=== PATIENT | male | born 1950 | race Caucasian/White ===

== ENCOUNTER 2018-05-27 21:49 | Inpatient (IN) | payer MEDICARE ==
[~2018-05-27] VITALS: Ht 182.9 cm; Wt 91.1 kg
[~2018-05-27 21:49] MED LIST: ABAC300 PO; ALBU90OI6 INH; ASPI325 PO; Atenolol-Chlor1 EAC1 PO; BUSP15; EPIN.3I IM; FLUSAL1005 INH; ISOMON30 PO; LEVFLO500 PO; LOVA40; LOVESTATIN; OMEP20ER PO; PRAM.5 PO; PRAMIPEXOLE D0.75 MG PO; PROCODE120 PO; Prednisone20 MG PO; TIOT18 INH; ZESTORETIC 20-121 EA; Zithromax250 MG PO
[2018-05-27 22:16] LABS: BASOPHILS PERCENT AUTO 1 % (0-2); EOSINOPHILS ABSOLUTE AUTO 0.76 K/mm3 (0.00-0.68); EOSINOPHILS PERCENT AUTO 9 % (0-6); Hematocrit 41.8 % (37.0-53.0); Hemoglobin 13.6 g/dL (13.5-17.5); IMMATURE GRAN ABSOLUTE AUTO 0.04 K/mm3 (0.00-0.10); IMMATURE GRAN PERCENT AUTO 0 % (0-1); LYMPHOCYTES ABSOLUTE AUTO 1.89 K/mm3 (0.84-5.20); LYMPHOCYTES PERCENT AUTO 21 % (21-46); MONOCYTES PERCENT AUTO 8 % (4-13); Mean Corpuscular HGB Conc 32.5 g/dL (31.5-36.5); Mean Corpuscular Volume 92 fL (80-100); Mean Platelet Volume 10.2 fL (9.1-12.4); NEUTROPHILS PERCENT AUTO 61 % (41-73); Platelet Count 212 K/mm3 (150-400); RDW Coefficient Variation 13.6 % (11.7-14.2); RDW Standard Deviation 46.1 fL (35.1-46.3); Red Blood Cell Count 4.54 M/mm3 (4.30-5.90); White Blood Cell Count 8.99 K/mm3 (4.00-11.30)
[2018-05-27 22:31] LABS: Alanine Aminotransfer (ALT/SGP 39 U/L (12-78); Albumin, Blood 3.5 g/dL (3.4-5.0); Albumin/Globulin Ratio 0.9 (0.8-1.8); Alk Phos 88 U/L (50-136); Anion Gap 9 mmol/L (6-16); Aspartate Aminotrans (AST/SGOT 26 U/L (12-37); Bilirubin, Total 0.2 mg/dL (0.1-1.0); Blood Urea Nitrogen 14 mg/dL (8-24); Bun/Creatinine Ratio 15.1 (12.0-20.0); CO2, Blood 27 mmol/L (21-32); Calcium, Blood 8.7 mg/dL (8.5-10.1); Chloride, Blood 104 mmol/L (98-108); Creatinine, Blood 0.93 mg/dL (0.60-1.20); Globulin, Blood 3.9 g/dL (2.2-4.0); Glomerular Filtration Rate >60 (60-); Glucose, Blood 116 mg/dL (70-99); Potassium, Blood 3.6 mmol/L (3.5-5.5); Sodium, Blood 140 mmol/L (136-145); Total Protein, Blood 7.4 g/dL (6.4-8.2); Troponin I <0.015 ng/mL (0.000-0.040)
[2018-05-28 07:04] LABS: Influenza A Negative (NEGATIVE); Influenza B Negative (NEGATIVE)
[2018-05-29] MEDS ORDERED: Zithromax250 MG PO (12:30)
[2018-05-29] MEDS ORDERED: DULERA 200 MCG/13 GM INH (12:31)
[2018-05-29] MEDS ORDERED: PRED20 PO (12:35)
== END 2018-05-29 13:20 | disposition home or self-care (01) | DRG 192 ==
LOC: ER 21:49 → SURS 23:18
PROVIDERS: Emergency Medicine; ADMIT Hospitalist
DX: J43.9 Emphysema, unspecified (principal); I25.2 Old myocardial infarction; I10 Essential (primary) hypertension; E78.5 Hyperlipidemia, unspecified; Z87.891 Personal history of nicotine dependence; H91.90 Unspecified hearing loss, unspecified ear; Z79.82 Long term (current) use of aspirin; I25.10 Atherosclerotic heart disease of native coronary artery without angina pectoris; Z86.73 Personal history of transient ischemic attack (TIA), and cerebral infarction without residual deficits; E66.9 Obesity, unspecified; Z68.32 Body mass index [BMI] 32.0-32.9, adult; K21.9 Gastro-esophageal reflux disease without esophagitis; J98.01 Acute bronchospasm
CPT/HCPCS: 71045; 80053; 83880; 84484; 85025; 87804; 93005; 93010; 94640; 94760; 96365; 96366; 99285-25; J1650; J1956; J2930

== ENCOUNTER → 2020-09-11 | Outpatient (CLI) | payer OTHER | END | disposition home or self-care (01) | LOC: LAB SHORT 12:16 → LAB 12:16 | DX: R60.9 Edema, unspecified (principal) | CPT/HCPCS: 80053; 83880; 85025 ==

== ENCOUNTER → 2020-12-24 | Outpatient (CLI) | payer OTHER ==
[~2020-12-24] MED LIST changes: +DULERA 200 MCG/13 GM INH; +PRED20 PO
[2020-12-24 09:52] LABS: BASOPHILS ABSOLUTE AUTO 0.02 K/mm3 (0.00-0.23); BASOPHILS PERCENT AUTO 0 % (0-2); EOSINOPHILS PERCENT AUTO 3 % (0-6); Hematocrit 40.8 % (37.0-53.0); Hemoglobin 12.6 g/dL (13.5-17.5); IMMATURE GRAN ABSOLUTE AUTO 0.02 K/mm3 (0.00-0.10); IMMATURE GRAN PERCENT AUTO 0 % (0-1); LYMPHOCYTES PERCENT AUTO 31 % (21-46); MONOCYTES ABSOLUTE AUTO 0.46 K/mm3 (0.16-1.47); MONOCYTES PERCENT AUTO 8 % (4-13); Mean Corpuscular HGB 28.1 pg (26.0-34.0); Mean Corpuscular HGB Conc 30.9 g/dL (31.5-36.5); Mean Corpuscular Volume 91 fL (80-100); Mean Platelet Volume 10.5 fL (9.1-12.4); NEUTROPHILS ABSOLUTE AUTO 3.38 K/mm3 (1.96-9.15); NEUTROPHILS PERCENT AUTO 58 % (41-73); Platelet Count 188 K/mm3 (150-400); RDW Coefficient Variation 14.9 % (11.7-14.2); RDW Standard Deviation 49.9 fL (35.1-46.3); Red Blood Cell Count 4.48 M/mm3 (4.30-5.90); White Blood Cell Count 5.88 K/mm3 (4.00-11.30)
[2020-12-24 10:48] LABS: Alanine Aminotransfer (ALT/SGP 46 U/L (12-78); Albumin, Blood 3.5 g/dL (3.4-5.0); Albumin/Globulin Ratio 0.8 (0.8-1.8); Alk Phos 77 U/L (50-136); Anion Gap 0 mmol/L (6-16); Aspartate Aminotrans (AST/SGOT 39 U/L (12-37); Bilirubin, Total 0.3 mg/dL (0.1-1.0); Blood Urea Nitrogen 21 mg/dL (8-24); Bun/Creatinine Ratio 21.3 (12.0-20.0); CO2, Blood 37 mmol/L (21-32); Calcium, Blood 8.9 mg/dL (8.5-10.1); Chloride, Blood 101 mmol/L (98-108); Creatinine, Blood 0.99 mg/dL (0.60-1.20); Globulin, Blood 4.2 g/dL (2.2-4.0); Glomerular Filtration Rate >60 (60-); Glucose, Blood 126 mg/dL (70-99); Potassium, Blood 4.2 mmol/L (3.5-5.5); Sodium, Blood 138 mmol/L (136-145); Total Protein, Blood 7.7 g/dL (6.4-8.2); Troponin I <0.015 ng/mL (0.000-0.040)
== END | disposition home or self-care (01) ==
LOC: LAB SHORT 09:45
PROVIDERS: Chiropractor
DX: R06.00 Dyspnea, unspecified (principal); R53.83 Other fatigue
CPT/HCPCS: 80053; 83880; 84443; 84484; 85025; 85379

== ENCOUNTER → 2021-04-08 | Outpatient (CLI) | payer OTHER ==
[2021-04-08 13:46] LABS: Alanine Aminotransfer (ALT/SGP 29 U/L (12-78); Albumin, Blood 3.6 g/dL (3.4-5.0); Albumin/Globulin Ratio 0.8 (0.8-1.8); Alk Phos 84 U/L (50-136); Anion Gap 6 mmol/L (6-16); Aspartate Aminotrans (AST/SGOT 16 U/L (12-37); Bilirubin, Total 0.4 mg/dL (0.1-1.0); Blood Urea Nitrogen 26 mg/dL (8-24); CO2, Blood 31 mmol/L (21-32); Calcium, Blood 9.4 mg/dL (8.5-10.1); Chloride, Blood 103 mmol/L (98-108); Creatinine, Blood 1.13 mg/dL (0.60-1.20); Globulin, Blood 4.4 g/dL (2.2-4.0); Glomerular Filtration Rate >60 (60-); Glucose, Blood 124 mg/dL (70-99); Potassium, Blood 3.5 mmol/L (3.5-5.5); Sodium, Blood 140 mmol/L (136-145)
== END | disposition home or self-care (01) ==
LOC: LAB 11:10 → LAB SHORT 11:10
PROVIDERS: Nurse Practitioner Family
DX: E11.9 Type 2 diabetes mellitus without complications (principal)
CPT/HCPCS: 36415; 80053; 83036

== ENCOUNTER 2021-08-01 15:31 | Inpatient (IN) | payer OTHER ==
[~2021-08-01] VITALS: Ht 170.2 cm; Wt 106.8 kg
[2021-08-01 16:15] LABS: BASOPHILS ABSOLUTE AUTO 0.05 K/mm3 (0.00-0.23); BASOPHILS PERCENT AUTO 1 % (0-2); EOSINOPHILS ABSOLUTE AUTO 0.41 K/mm3 (0.00-0.68); EOSINOPHILS PERCENT AUTO 4 % (0-6); Hematocrit 39.1 % (37.0-53.0); IMMATURE GRAN ABSOLUTE AUTO 0.05 K/mm3 (0.00-0.10); IMMATURE GRAN PERCENT AUTO 1 % (0-1); LYMPHOCYTES ABSOLUTE AUTO 1.69 K/mm3 (0.84-5.20); LYMPHOCYTES PERCENT AUTO 18 % (21-46); MONOCYTES ABSOLUTE AUTO 0.77 K/mm3 (0.16-1.47); MONOCYTES PERCENT AUTO 8 % (4-13); Mean Corpuscular HGB 27.9 pg (26.0-34.0); Mean Corpuscular HGB Conc 30.7 g/dL (31.5-36.5); Mean Corpuscular Volume 91 fL (80-100); Mean Platelet Volume 10.2 fL (9.1-12.4); NEUTROPHILS ABSOLUTE AUTO 6.51 K/mm3 (1.96-9.15); NEUTROPHILS PERCENT AUTO 69 % (41-73); Platelet Count 233 K/mm3 (150-400); RDW Coefficient Variation 14.7 % (11.7-14.2); RDW Standard Deviation 49.4 fL (35.1-46.3); White Blood Cell Count 9.48 K/mm3 (4.00-11.30)
[2021-08-01 16:32] LABS: Base Excess Venous 17.2 mmol/L; Bicarbonate Venous 37.6 mmol/L (24.0-30.0); PCO2 Venous 82.4 mmHg (38-42); PO2 Venous 76.3 mmHg (38-42); pH Blood Venous 7.33 (7.34-7.37)
[2021-08-01 16:35] LABS: Alanine Aminotransfer (ALT/SGP 47 U/L (12-78); Albumin, Blood 3.4 g/dL (3.4-5.0); Albumin/Globulin Ratio 0.8 (0.8-1.8); Alk Phos 81 U/L (50-136); Anion Gap 3 mmol/L (6-16); Aspartate Aminotrans (AST/SGOT 45 U/L (12-37); Bilirubin, Total 0.4 mg/dL (0.1-1.0); Blood Urea Nitrogen 17 mg/dL (8-24); Bun/Creatinine Ratio 17.1 (12.0-20.0); CO2, Blood 40 mmol/L (21-32); Calcium, Blood 9.3 mg/dL (8.5-10.1); Chloride, Blood 95 mmol/L (98-108); Creatinine, Blood 0.99 mg/dL (0.60-1.20); Globulin, Blood 4.3 g/dL (2.2-4.0); Glomerular Filtration Rate >60 (60-); Glucose, Blood 119 mg/dL (70-99); Potassium, Blood 3.7 mmol/L (3.5-5.5); Sodium, Blood 138 mmol/L (136-145); Total Protein, Blood 7.7 g/dL (6.4-8.2)
[2021-08-01 16:43] LABS: Influenza A, PCR NEGATIVE (NEGATIVE); Influenza B, PCR NEGATIVE (NEGATIVE); Resp Syncytial Virus, PCR NEGATIVE (NEGATIVE); SARS-Cov-2 (COVID-19) PCR, MMC NEGATIVE (NEGATIVE)
--- NOTE | 2021-08-02 02:05 | NUR ---
HOSPITALIST NOTIFIED HOSPITALIST NOTIFIED OF PT'S INCREASED CONFUSION, TEMP 99.6 & EPISODES OF HYPOTENSION WHILE SLEEPING. 500 ML NS BOLUS X 1 & PO TYLENOL HAS BEEN ORDERED. PT IS HARD TO WAKE BUT ONCE HE DOES HE IS ABLE TO ANSWER QUESTIONS AND BP IS WNL. PT HAS BEEN WEARING THE CPAP FOR APPROX 1 HOUR & HAS REQUESTED TO BE PLACED BACK ON NC. RESP UNLABORED. CALL LIGHT IN REACH. PT STATUS HAS ALSO BEEN DISCUSSED WITH PRESIDENT & CEO [employer].
[2021-08-02 03:49] LABS: BASOPHILS ABSOLUTE AUTO 0.01 K/mm3 (0.00-0.23); BASOPHILS PERCENT AUTO 0 % (0-2); EOSINOPHILS PERCENT AUTO 0 % (0-6); Hematocrit 36.1 % (37.0-53.0); Hemoglobin 10.8 g/dL (13.5-17.5); IMMATURE GRAN ABSOLUTE AUTO 0.03 K/mm3 (0.00-0.10); IMMATURE GRAN PERCENT AUTO 1 % (0-1); LYMPHOCYTES ABSOLUTE AUTO 0.35 K/mm3 (0.84-5.20); LYMPHOCYTES PERCENT AUTO 6 % (21-46); MONOCYTES ABSOLUTE AUTO 0.07 K/mm3 (0.16-1.47); MONOCYTES PERCENT AUTO 1 % (4-13); Mean Corpuscular HGB 27.7 pg (26.0-34.0); Mean Corpuscular HGB Conc 29.9 g/dL (31.5-36.5); Mean Corpuscular Volume 93 fL (80-100); Mean Platelet Volume 10.1 fL (9.1-12.4); NEUTROPHILS ABSOLUTE AUTO 5.23 K/mm3 (1.96-9.15); NEUTROPHILS PERCENT AUTO 92 % (41-73); Platelet Count 216 K/mm3 (150-400); RDW Coefficient Variation 14.7 % (11.7-14.2); RDW Standard Deviation 49.5 fL (35.1-46.3); White Blood Cell Count 5.69 K/mm3 (4.00-11.30)
[2021-08-02 04:14] LABS: Bun/Creatinine Ratio 19.4 (12.0-20.0); Calcium, Blood 8.7 mg/dL (8.5-10.1); Creatinine, Blood 1.39 mg/dL (0.60-1.20); Potassium, Blood 4.2 mmol/L (3.5-5.5)
--- NOTE | 2021-08-02 05:11 | NUR ---
SUMMARY A&O X3, MOMENTS OF CONFUSION NOTED, BED ALARM IS ON FOR SAFETY. PT WAS GIVEN A 500 ML BOLUS, BP HAS BEEN WNL SINCE BOLUS BUT PT HAS ALSO BEEN AWAKE. O2 VIA HF NC @ 7 L, SPO2 88-95%, PT WAS ABLE TO TOLERATE CPAP FOR A FEW HRS. PT DENIES CP/SOB. PT UNABLE TO VOID THROUGH THE NIGHT, BLADDER SCAN SHOWED APPROX 750 ML'S, PT STRAIGHT CATHED, >800 ML'S F URINE NOTED. NO OTHER ACUTE CHANGES. CALL LIGHT IN REACH.
--- NOTE | 2021-08-02 17:19 | NUR ---
SHIFT SUMMARY PT REMAINS ALERT AND ORIENTED. BP STABLE. HR NSR. PT TITRATED UP TO 10L NC TO KEEP SATURATION ABOVE 90%. PT ON BIPAP ON AND OFF THROUGHOUT SHIFT. PT ABLE TO STAND AND TRANSFER TO BSC NEEDED TO VOID. PT DENIES ANY PAIN. WILL CONTINUE TO MONITOR AND REPORT TO ONCOMING RN
--- NOTE | 2021-08-02 23:01 | NUR ---
Assumed care of pt at 1900. A/Ox4, sitting up in bed and watching television. Reports no pain/CP/pressure. Maintaining low 90's on 10L NC, LS dim t/o. NSR on tele, 2+ radial pulses, and 1+ pedals. +2 pitting edema BLE. Distended abdomen, pt reports normal. Will wear bipap periodically, but not for an extended period of time. Will update as changes occur.
--- NOTE | 2021-08-03 15:29 | NUR ---
UPDATE PT REMAINS ALERT AND ORIENTED. O2 SATS TITRATED DOWN TO 7L NC WITH SATS >90%. STATUS CHANGED TO MEDICAL. ROOM ASSIGNMENT PROVIDED AND REPORT GIVEN TO MEDICAL FLOOR RN. PT TO BE TAKEN UP BY WC.
--- NOTE | 2021-08-04 03:32 | NUR ---
SHIFT SUMMARY PATIENT HAD NO ACUTE CHANGES OBSERVED. AXOX 3 AND SBA W/FWW TO BSC. ON 6L O2 NC AND 4L BASELINE. RT IN FOR BREATHING TX. PIV REMAINS INTACT. IV ABX INFUSED. CBG 327. SOLU-MEDROL GIVEN PER EMAR. DENIES PAIN AND N/V. REPORTS LIKES TO STAY UP AT NIGHT AND WATCH MOVIES. COOPERATIVE WITH CARE. CALL LIGHT IN REACH. BED IN LOWEST POSITION. WILL CONTINUE TO MONITOR UNTIL DAY SHIFT NURSE ASSUMES CARE.
--- NOTE | 2021-08-04 14:29 | NUR ---
Received referral from [facility] (Belkis Thompson) on 08/04/2021. Patient was admitted to [facility] on 08/01/2021 due to acute on chronic respiratory failure with hypoxia. Patient is to discharge 08/05/2021 with orders for home health and elected [facility]. Met with patient to further discuss the above. Patient declines home health services at this time stating "I don't want it, I'm not homebound". Informed patient that if they changed their mind they could always request services through their primary care provider. Provided patient with my business card and home health pamphlet. Communicated the above to [facility] (Belksi Thompson) and bedside RN (Tristian Franco). No further interventions required. Maryanne Bruce Referral Liaison
--- NOTE | 2021-08-04 15:09 | NUR ---
This [facility] CM visited the patient in his room this morning. Patient's , Sommer Booth was present as well. They report that they live in a single story home together with 4-5 steps to the entrance, which the patient does not needed assistance with. Patient is mostly independent in his home but, provides help with ADLs when needed. Patient has a wheelchair, 4WW, cane, O2 and supplies. He states he usually is on 4LPM O2 at home via nasal cannula. helps with medication management and will be able to provide transportation at discharge.
--- NOTE | 2021-08-04 18:28 | NUR ---
PT IS A/OX3, PLEASANT AND COOPERATIVE, UP WITH MINIMAL ASSIST. THE PT WAS TIRATED TO 4L/MIN FROM 6L/MIN TODAY WHICH IS HIS HOME BASELINE, AND MAINTAINED O2 SATS GREATE THAN 90% T/O THE DAY. THE PT DENIED ANY PAIN. PT WAS TO BE DC'D TODAY BUT DUE TO HIGH BLOOD SUGARS DC WAS HELD UNTIL BLOOD SUGER IS STABLE. CALL LIGHT IN REACH, EXPECT DC TOMMOROW
[2021-08-05 05:47] LABS: BASOPHILS PERCENT AUTO 0 % (0-2); EOSINOPHILS PERCENT AUTO 0 % (0-6); Hemoglobin 12.1 g/dL (13.5-17.5); IMMATURE GRAN ABSOLUTE AUTO 0.03 K/mm3 (0.00-0.10); IMMATURE GRAN PERCENT AUTO 0 % (0-1); LYMPHOCYTES ABSOLUTE AUTO 1.96 K/mm3 (0.84-5.20); LYMPHOCYTES PERCENT AUTO 21 % (21-46); MONOCYTES ABSOLUTE AUTO 0.64 K/mm3 (0.16-1.47); MONOCYTES PERCENT AUTO 7 % (4-13); Mean Corpuscular HGB 27.5 pg (26.0-34.0); Mean Corpuscular Volume 89 fL (80-100); Mean Platelet Volume 10.9 fL (9.1-12.4); NEUTROPHILS ABSOLUTE AUTO 6.68 K/mm3 (1.96-9.15); NEUTROPHILS PERCENT AUTO 72 % (41-73); Platelet Count 271 K/mm3 (150-400); RDW Standard Deviation 49.5 fL (35.1-46.3); White Blood Cell Count 9.31 K/mm3 (4.00-11.30)
[2021-08-05 06:03] LABS: Anion Gap 6 mmol/L (6-16); Blood Urea Nitrogen 32 mg/dL (8-24); Bun/Creatinine Ratio 31.7 (12.0-20.0); CO2, Blood 35 mmol/L (21-32); Calcium, Blood 9.3 mg/dL (8.5-10.1); Chloride, Blood 99 mmol/L (98-108); Creatinine, Blood 1.01 mg/dL (0.60-1.20); Glomerular Filtration Rate >60 (60-); Glucose, Blood 176 mg/dL (70-99); Potassium, Blood 3.6 mmol/L (3.5-5.5); Sodium, Blood 140 mmol/L (136-145)
--- NOTE | 2021-08-05 06:48 | NUR ---
SHIFT SUMMARY Pt doing well, no c/o pain or nausea, lungs diminished, angelia 4L O2 via n/c which is his baseline home O2. Blood sugars downtrending and his H/S blood sugar was 251 last evening, med per jul. Pt up independently in room, voiding without difficulty. Anticipate d/c to home today if medically stable.
[2021-08-05] MEDS ORDERED: GABA100 PO (10:17)
[2021-08-05] MEDS ORDERED: FURO20 PO (10:17)
[2021-08-05] MEDS ORDERED: POTA10T PO (10:18)
[2021-08-05] MEDS ORDERED: METF500 PO (10:18)
[2021-08-05] MEDS ORDERED: LISI20 PO (10:18)
[2021-08-05] MEDS ORDERED: GLIP5 PO (10:19)
[2021-08-05] MEDS ORDERED: TRAZ50 PO (10:19)
[2021-08-05] MEDS ORDERED: IPRAT-ALBUT 0.5-3 ML INH (10:20)
[2021-08-05] MEDS ORDERED: CEFD300 PO (10:20)
[2021-08-05] MEDS ORDERED: CARV3.125 PO (10:20)
--- NOTE | 2021-08-05 11:06 | NUR ---
PT DISCHARGED THE PT VERBALIZED UNDERSTANDING OF THE DC INSTRUCTIONS. PT PRESCRIPTIONS FAXED TO REQUESTED PHARMACY. THE PT WAS MAINTAING O2 SAT'S ABOVE 90% ON 4L/MIN O2 HIS HOME BASELINE. THE PT WAS TRANSFERED VIA WHEELCHAIR TO MEET HIS AT THE FRONT ENTRANCE
--- NOTE | 2021-08-05 14:31 | NUR ---
Per chart review with Dr. Holland, patient appropriate to discharge home with spouse, Sommer. This [facility] CM spoke with Sommer this morning to discuss discharge plan. Sommer provided discharge transportation home. [facility] CM scheduled a hospital follow up for the patient during conversation with spouse. Appointment with PCP, Valery Foster scheduled for July at 12:20 PM. Both aware [facility] has recommended outpatient PT. PCP to discuss referral. No needs anticipated post discharge, patient/spouse deny barriers.
== END 2021-08-05 10:53 | disposition home or self-care (01) | DRG 189 ==
LOC: ER 15:31 → PCU 20:38 → MEDS 08-03 16:04 → ENPENDDIS 08-04 12:34 → MEDS 08-05 10:53
PROVIDERS: Emergency Medicine; Internal Medicine; ADMIT Internal Medicine
PROC: 5A09457 Assistance with Respiratory Ventilation, 24-96 Consecutive Hours, Continuous Positive Airway Pressure (ICD-10-PCS; principal; 2021-08-01)
DX: J96.21 Acute and chronic respiratory failure with hypoxia (principal); E87.2 Acidosis; J98.11 Atelectasis; J96.22 Acute and chronic respiratory failure with hypercapnia; Z20.822 Contact with and (suspected) exposure to COVID-19; Z28.21 Immunization not carried out because of patient refusal; I10 Essential (primary) hypertension; E78.5 Hyperlipidemia, unspecified; I25.10 Atherosclerotic heart disease of native coronary artery without angina pectoris; F17.210 Nicotine dependence, cigarettes, uncomplicated; G47.33 Obstructive sleep apnea (adult) (pediatric); K21.9 Gastro-esophageal reflux disease without esophagitis; E11.40 Type 2 diabetes mellitus with diabetic neuropathy, unspecified; G25.81 Restless legs syndrome; J43.9 Emphysema, unspecified; E11.65 Type 2 diabetes mellitus with hyperglycemia; T38.0X5A Adverse effect of glucocorticoids and synthetic analogues, initial encounter; Z86.73 Personal history of transient ischemic attack (TIA), and cerebral infarction without residual deficits; Z95.5 Presence of coronary angioplasty implant and graft; I25.2 Old myocardial infarction; Z99.81 Dependence on supplemental oxygen; Z95.1 Presence of aortocoronary bypass graft; Z88.6 Allergy status to analgesic agent; Z88.8 Allergy status to other drugs, medicaments and biological substances; Z88.5 Allergy status to narcotic agent; Z79.84 Long term (current) use of oral hypoglycemic drugs; Z79.899 Other long term (current) drug therapy
CPT/HCPCS: 0241U; 36415; 51701; 71045; 80048; 80053; 82803; 82947; 83880; 84145; 84484; 85025; 93005; 93010; 94640; 94660; 94762; 97116; 97162; 97165; 97530; 99285-25; A9270; J0696; J1650; J1940; J2930; J7030

== ENCOUNTER 2021-11-21 18:41 | Inpatient (IN) | payer OTHER ==
[~2021-11-21] VITALS: Ht 170.2 cm; Wt 89.9 kg
[~2021-11-21 18:41] MED LIST changes: +CARV3.125 PO; +CEFD300 PO; +FURO20 PO; +GABA100 PO; +GLIP5 PO; +IPRAT-ALBUT 0.5-3 ML INH; +LISI20 PO; +METF500 PO; +POTA10T PO; +TRAZ50 PO
[2021-11-21 19:07] LABS: BASOPHILS ABSOLUTE AUTO 0.04 K/mm3 (0.00-0.23); BASOPHILS PERCENT AUTO 1 % (0-2); EOSINOPHILS ABSOLUTE AUTO 0.19 K/mm3 (0.00-0.68); EOSINOPHILS PERCENT AUTO 3 % (0-6); Hematocrit 39.5 % (37.0-53.0); Hemoglobin 11.4 g/dL (13.5-17.5); IMMATURE GRAN ABSOLUTE AUTO 0.02 K/mm3 (0.00-0.10); IMMATURE GRAN PERCENT AUTO 0 % (0-1); LYMPHOCYTES ABSOLUTE AUTO 1.77 K/mm3 (0.84-5.20); LYMPHOCYTES PERCENT AUTO 23 % (21-46); MONOCYTES ABSOLUTE AUTO 0.44 K/mm3 (0.16-1.47); MONOCYTES PERCENT AUTO 6 % (4-13); Mean Corpuscular HGB 27.1 pg (26.0-34.0); Mean Corpuscular HGB Conc 28.9 g/dL (31.5-36.5); Mean Corpuscular Volume 94 fL (80-100); NEUTROPHILS ABSOLUTE AUTO 5.17 K/mm3 (1.96-9.15); NEUTROPHILS PERCENT AUTO 68 % (41-73); Platelet Count 157 K/mm3 (150-400); RDW Standard Deviation 51.9 fL (35.1-46.3); Red Blood Cell Count 4.21 M/mm3 (4.30-5.90); White Blood Cell Count 7.63 K/mm3 (4.00-11.30)
[2021-11-21 19:23] LABS: Albumin, Blood 3.5 g/dL (3.4-5.0); Albumin/Globulin Ratio 0.9 (0.8-1.8); Bilirubin, Total 0.3 mg/dL (0.1-1.0); Bun/Creatinine Ratio 26.4 (12.0-20.0); Calcium, Blood 9.3 mg/dL (8.5-10.1); Creatinine, Blood 1.82 mg/dL (0.60-1.20); Globulin, Blood 3.9 g/dL (2.2-4.0); Potassium, Blood 5.5 mmol/L (3.5-5.5); Total Protein, Blood 7.4 g/dL (6.4-8.2)
[2021-11-21 19:24] LABS: Base Excess Venous 13.3 mmol/L; Bicarbonate Venous 34.3 mmol/L (24.0-30.0); pH Blood Venous 7.33 (7.34-7.37)
[2021-11-21 19:25] LABS: Calcium, Ionized (POC) 1.16 mmol/L (1.10-1.46); Chloride (POC) 97 mmol/L (98-108); Creatinine (POC) 1.9 mg/dL (0.8-1.3); Glucose (ISTAT POC) 107 mg/dL (70-99); Hemoglobin (POC) 12.9 g/dL (13.5-17.5); Potassium (POC) 6.2 mmol/L (3.5-5.5); Sodium (POC) 141 mmol/L (135-148); Total CO2 (POC) 41 mmol/L (21-32)
[2021-11-21 20:13] LABS: Magnesium, Blood 2.1 mg/dL (1.6-2.4)
[2021-11-21 22:49] LABS: Source, Urine Clean Catch
[2021-11-21 22:51] LABS: Bilirubin, Urine Neg (Neg); Blood, Urine Neg (Neg); Glucose Qualitative, Urine Neg (Neg); Ketones, Urine Neg (Neg); Leukocyte Esterase, Urine Neg (Neg); Nitrite, Urine Neg (Neg); Protein, Urine Neg (Neg); Specific Gravity, Urine 1.015 (1.003-1.022); Urobilinogen, Urine NORM (Normal)
[2021-11-21 22:55] LABS: Appearance, Urine Clear (Clear); Color, Urine Yellow (P-Yellow)
[2021-11-21 23:28] LABS: Influenza A, PCR NEGATIVE (NEGATIVE); Influenza B, PCR NEGATIVE (NEGATIVE); Resp Syncytial Virus, PCR NEGATIVE (NEGATIVE); SARS-Cov-2 (COVID-19) PCR, MMC NEGATIVE (NEGATIVE)
[2021-11-22 01:16] LABS: PCO2 Arterial 84.4 mmHg (35-45); PO2 Arterial 93.3 mmHg (80-100); pH Blood Arterial 7.25 (7.35-7.45)
--- NOTE | 2021-11-22 01:32 | NUR ---
CALL TO DR. DEL CASTILLO NOTIFIED OF CRITICAL ABG LAB RESULTS. PH 7.25 AND PCO2 84.4. REPEAT ABG IN ONE HOUR. PT SWITCHED FROM A V30 TO A V60.
[2021-11-22 01:48] LABS: Hematocrit 39.7 % (37.0-53.0); Hemoglobin 11.4 g/dL (13.5-17.5); Mean Corpuscular HGB 27.1 pg (26.0-34.0); Mean Corpuscular HGB Conc 28.7 g/dL (31.5-36.5); Mean Corpuscular Volume 95 fL (80-100); Mean Platelet Volume 11.1 fL (9.1-12.4); Platelet Count 177 K/mm3 (150-400); RDW Coefficient Variation 14.9 % (11.7-14.2); RDW Standard Deviation 52.6 fL (35.1-46.3); White Blood Cell Count 7.86 K/mm3 (4.00-11.30)
--- NOTE | 2021-11-22 02:00 | NUR ---
PT ARRIVED FROM THE ER AT APPX 0055 TO ICU ROOM 6. PT WAS ON BIPAP W/ 8L BLEED IN O2 WITH SATS 86-88%. OXYGEN WAS INCREASED TO 15L AND SATS WERE STILL LESS THAN 90%. PT WAS CHANGED TO AVAPS MACHINE. BLOOD GASES WERE ALSO DRAWN AT THAT TIME W/CRITICAL RESULT CALLED TO DR DEL CASTILLO. CURRENT BIPAP SETTINGS ARE 18.8 W/RATE 18 80% FIO2. LABS HAVE BEEN DRAWN AND SENT. PT WAS LETHARGIC UPON ARRIVAL BUT WOULD RESPOND TO VERBAL STIMULI. PT IS VERY HARD OF HEARING. HE IS ORIENTED TO NAME ONLY AND ASKED WHERE HE WAS AND WHAT WAS GOING ON. PT WAS EDUCATED ON HIS PLAN OF CARE. PT WAS ALSO ON LEVOPHED AT 5.5MCGS WHEN HE ARRIVED INFUSING VIA LEFT FEMORAL CVL PLACED IN THE ER. BP MAP ON THIS RATE ARE >65. PT IS IN SR W/RATE 60S-80S. HE IS AFEBRILE. PT IS CURRENTLY IN NO ACUTE DISTRESS AND IS TOLERATING THE CURRENT TREATMENTS PROVIDED.
[2021-11-22 02:25] LABS: Bun/Creatinine Ratio 25.6 (12.0-20.0); Calcium, Blood 10.1 mg/dL (8.5-10.1); Creatinine, Blood 1.8 mg/dL (0.60-1.20); Potassium, Blood 6.4 mmol/L (3.5-5.5)
[2021-11-22 02:28] LABS: PCO2 Arterial > 105 mmHg (35-45); PO2 Arterial 212 mmHg (80-100); pH Blood Arterial 7.13 (7.35-7.45)
--- NOTE | 2021-11-22 02:49 | NUR ---
INTUBATION BY RT WITH DR. DEL CASTILLO AT BEDSIDE 15MG ETOMIDATE AT 0250 100MG OF LILIA AT 0250 NSR 60'S 102/60 (72) SPO2 98% ETT 8.0 25CM AT GUM 0251 + COLOR CHANGE. + BREATH SOUNDS. SPO2 94%
--- NOTE | 2021-11-22 03:25 | NUR ---
I CALLED PT'S AND UPDATED HER ON PT INTUBATION/CHANGE IN CONDITION. SHE VOICED HER APPRECIATION FOR THE UPDATE.
[2021-11-22 04:48] LABS: BASOPHILS ABSOLUTE AUTO 0.02 K/mm3 (0.00-0.23); BASOPHILS PERCENT AUTO 0 % (0-2); EOSINOPHILS ABSOLUTE AUTO 0.02 K/mm3 (0.00-0.68); EOSINOPHILS PERCENT AUTO 0 % (0-6); Hematocrit 38.5 % (37.0-53.0); Hemoglobin 11.2 g/dL (13.5-17.5); IMMATURE GRAN ABSOLUTE AUTO 0.03 K/mm3 (0.00-0.10); IMMATURE GRAN PERCENT AUTO 0 % (0-1); LYMPHOCYTES ABSOLUTE AUTO 0.58 K/mm3 (0.84-5.20); LYMPHOCYTES PERCENT AUTO 8 % (21-46); MONOCYTES ABSOLUTE AUTO 0.07 K/mm3 (0.16-1.47); MONOCYTES PERCENT AUTO 1 % (4-13); Mean Corpuscular HGB 27.1 pg (26.0-34.0); Mean Corpuscular HGB Conc 29.1 g/dL (31.5-36.5); Mean Corpuscular Volume 93 fL (80-100); Mean Platelet Volume 11.4 fL (9.1-12.4); NEUTROPHILS ABSOLUTE AUTO 6.57 K/mm3 (1.96-9.15); NEUTROPHILS PERCENT AUTO 90 % (41-73); Platelet Count 185 K/mm3 (150-400); RDW Coefficient Variation 14.8 % (11.7-14.2); RDW Standard Deviation 51.1 fL (35.1-46.3); Red Blood Cell Count 4.13 M/mm3 (4.30-5.90); White Blood Cell Count 7.29 K/mm3 (4.00-11.30)
--- NOTE | 2021-11-22 05:20 | NUR ---
PT NOTED TO HAVE SOME SHIVERING TYPE MOVEMENTS INTERMITTENTLY. HE HAD DONE THIS PRIOR TO INTUBATION WHILE NOT SEDATED WELL. DR JACOBSEN NOTIFIED. CT OF THE HEAD ALREADY DONE. ORDERS GIVEN. PT IS PERRLA WITH NO SIGNS OF AN ACUTE NEUROLOGICAL EVENT.
[2021-11-22 05:25] LABS: Albumin, Blood 3.3 g/dL (3.4-5.0); Albumin/Globulin Ratio 0.9 (0.8-1.8); Bilirubin, Total 0.4 mg/dL (0.1-1.0); Bun/Creatinine Ratio 25.4 (12.0-20.0); Calcium, Blood 10.2 mg/dL (8.5-10.1); Creatinine, Blood 1.69 mg/dL (0.60-1.20); Globulin, Blood 3.6 g/dL (2.2-4.0); Potassium, Blood 5.4 mmol/L (3.5-5.5); Total Protein, Blood 6.9 g/dL (6.4-8.2)
[2021-11-22 05:34] LABS: PCO2 Arterial 48.4 mmHg (35-45); PO2 Arterial 54.6 mmHg (80-100); pH Blood Arterial 7.46 (7.35-7.45)
[2021-11-22 06:22] LABS: U Amphetamine Screen Not Detected; U Barbituate Screen Not Detected; U Benzodiazapine Screen Not Detected; U Buprenorphine Screen Not Detected; U Cannabinoids Screen Not Detected; U Cocaine Screen Not Detected; U Methadone Screen Not Detected; U Methamphetamine Screen Not Detected; U Opiates Screen Not Detected; U Oxycodone Screen Not Detected; U Phencyclidine Screen Not Detected; U Propoxyphene Screen Not Detected
[2021-11-22 16:47] LABS: Magnesium, Blood 1.7 mg/dL (1.6-2.4)
[2021-11-22 16:48] LABS: Bun/Creatinine Ratio 25.3 (12.0-20.0); Calcium, Blood 9.8 mg/dL (8.5-10.1); Creatinine, Blood 1.5 mg/dL (0.60-1.20); Potassium, Blood 5.1 mmol/L (3.5-5.5)
--- NOTE | 2021-11-22 17:48 | NUR ---
SHIFT SUMMARY PT REMAINS INTUBATED, VENT SETTINGS AC 14/500/5/50% WITH SATS>90%. PROPOFOL @ 40 MCG/KG/MIN. PT EASILY AROUSABLE TO VERBAL STIMULI, FOLLOWS COMMANDS, EASILY AGITATED. PT TREMULOUS, PER PT'S , PT BEGAN GETTING TREMORS 3 DAYS STOCK BLENDER. PT SR WITH PEAKED T WAVE HR 70-80 AT START OF SHIFT. PT BEGAN TO HAVE RHYTHM CHANGES WITH HR IN 50'S. EKG DONE, REPEAT LABS. ORDERS RECEIVED. 1200 ML URINARY OUTPUT FROM VASQUES CATH. PT'S AT BEDSIDE. UPDATED WITH PLAN OF CARE. WILL REPORT TO ONCOMING NURSE.
--- NOTE | 2021-11-22 21:26 | NUR ---
SPOKE TO PT AND UPDATED HER ON PT CONDITON. VOICED APPRECIATION FOR CARE AND INFORMATION PROVIDED.
[2021-11-22 23:09] LABS: Source, Urine Foley catheter
[2021-11-22 23:12] LABS: Bilirubin, Urine Neg (Neg); Blood, Urine 2+ (Neg); Glucose Qualitative, Urine 1+ (Neg); Ketones, Urine Neg (Neg); Leukocyte Esterase, Urine Neg (Neg); Nitrite, Urine Neg (Neg); Protein, Urine 2+ (Neg); Specific Gravity, Urine 1.005 (1.003-1.022); Urobilinogen, Urine NORM (Normal)
[2021-11-22 23:17] LABS: Appearance, Urine Clear (Clear); Color, Urine Yellow (P-Yellow)
[2021-11-22 23:19] LABS: Bacteria Rare /hpf; Mucus Light (0-Heavy); Squamous Epithelial Cells Not Seen /hpf (Few); White Blood Cells, Urine 0-2 /hpf (0-5)
[2021-11-23 05:02] LABS: BASOPHILS ABSOLUTE AUTO 0.02 K/mm3 (0.00-0.23); BASOPHILS PERCENT AUTO 0 % (0-2); EOSINOPHILS ABSOLUTE AUTO 0.08 K/mm3 (0.00-0.68); EOSINOPHILS PERCENT AUTO 1 % (0-6); Hematocrit 32.1 % (37.0-53.0); Hemoglobin 9.8 g/dL (13.5-17.5); IMMATURE GRAN ABSOLUTE AUTO 0.02 K/mm3 (0.00-0.10); IMMATURE GRAN PERCENT AUTO 0 % (0-1); LYMPHOCYTES ABSOLUTE AUTO 2.15 K/mm3 (0.84-5.20); LYMPHOCYTES PERCENT AUTO 29 % (21-46); MONOCYTES ABSOLUTE AUTO 0.42 K/mm3 (0.16-1.47); MONOCYTES PERCENT AUTO 6 % (4-13); Mean Corpuscular HGB Conc 30.5 g/dL (31.5-36.5); Mean Platelet Volume 11.3 fL (9.1-12.4); NEUTROPHILS ABSOLUTE AUTO 4.75 K/mm3 (1.96-9.15); NEUTROPHILS PERCENT AUTO 64 % (41-73); Platelet Count 148 K/mm3 (150-400); RDW Coefficient Variation 15.7 % (11.7-14.2); RDW Standard Deviation 50.7 fL (35.1-46.3); Red Blood Cell Count 3.63 M/mm3 (4.30-5.90); White Blood Cell Count 7.44 K/mm3 (4.00-11.30)
[2021-11-23 05:16] LABS: Mean Corpuscular Volume 88 fL (80-100)
[2021-11-23 05:19] LABS: Bun/Creatinine Ratio 25.3 (12.0-20.0); Creatinine, Blood 1.5 mg/dL (0.60-1.20); Phosphorus, Blood 3.3 mg/dL (2.5-4.9); Potassium, Blood 4.3 mmol/L (3.5-5.5)
--- NOTE | 2021-11-23 06:05 | NUR ---
SHIFT SUMMERY PT CONTINUES ON VENT VIA ETT TUBE RATE 14/TV 500/PEEP 8/FIO2 60%. PROPOFOL AT 55MCGS. PT BECOMES VERY AGITATED W/ANY STIMULATION. VS WNL, PRESSORS REMAIN OFF. TUBE FEEDING IS AT GOAL, MAX RESIDUAL WAS 90ML. PT HAS BEEN AFEBRILE. NO CRITICAL LAB VALUES THIS MORNING. NO ACUTE CHANGES OVERNIGHT.
--- NOTE | 2021-11-23 10:07 | NUR ---
AT BEDSIDE, REPORT FROM RENAE RICCI RN, NO DISTRESS, REPOSITIONED PATIENT
--- NOTE | 2021-11-23 10:49 | NUR ---
DR KHAN ROUNDED, NO HOLIDAY SEDATION, TRIAL TOMORROW FOR EXTUBATION, AT BEDSIDE
--- NOTE | 2021-11-23 15:03 | NUR ---
DR LEMON DECREASED THE FIO2 TO 30% AND PEEP TO 5 AT 1239, 1340 SBT STARTED, PATIENT BECAME APNEA, BACK ON ACVC, NO APNEA, NO DISTRESS
--- NOTE | 2021-11-23 17:37 | NUR ---
unable to makes needs known, intubated, size 8 27 at the teeth, acvc 14/500/5/30%, wakes easily, easily aggitated, follows directions, opens eyes to voice. propofol infusing at 60 mcg, left femoral line. sbt today, patient became apnea after 1 hour, possible extubation tomorrow per dr castillo. sr heart rate at 60, sbp 90-110, map >60, bt active, tube feed infusing, am residual 100, returned, noon and 4 pm residual 0. no bm, repositioned through out the day, will relay to pm rn, wctm
--- NOTE | 2021-11-23 19:21 | NUR ---
ASSUMPTION OF CARE PT IS INTUBATED W/ETT TUBE INTACT AND PATENT TO THE VENT. PT WAS AGITATED SHAKING HIS HEAD AND MOVING HIS EXTREMITIES BUT WENT BACK TO RESTING W/OUT INTERVENTION. SWR IN PLACE. PT IS SEDATED W/PROPOFOL AT 60MCGS. VS WNL AT THIS TIME. PT HAS TF INFUSING THROUGH OROGASTRIC TUBE. RIGHT FEMORAL QUAD LUMEN CVL FOR INFUSIONS. VASQUES CATH INTACT PATENT AND DRAINING YELLOW URINE BELOW THE LEVEL OF THE BLADDER. NO S/S OF ACUTE DISTRESS NOTED AT THIS TIME.
[2021-11-24 03:29] LABS: BASOPHILS ABSOLUTE AUTO 0.05 K/mm3 (0.00-0.23); BASOPHILS PERCENT AUTO 1 % (0-2); EOSINOPHILS ABSOLUTE AUTO 0.25 K/mm3 (0.00-0.68); EOSINOPHILS PERCENT AUTO 4 % (0-6); Hematocrit 32.2 % (37.0-53.0); Hemoglobin 10.2 g/dL (13.5-17.5); IMMATURE GRAN ABSOLUTE AUTO 0.02 K/mm3 (0.00-0.10); IMMATURE GRAN PERCENT AUTO 0 % (0-1); LYMPHOCYTES ABSOLUTE AUTO 1.66 K/mm3 (0.84-5.20); LYMPHOCYTES PERCENT AUTO 25 % (21-46); MONOCYTES PERCENT AUTO 6 % (4-13); Mean Corpuscular HGB 27.5 pg (26.0-34.0); Mean Corpuscular HGB Conc 31.7 g/dL (31.5-36.5); Mean Corpuscular Volume 87 fL (80-100); Mean Platelet Volume 11.7 fL (9.1-12.4); NEUTROPHILS ABSOLUTE AUTO 4.23 K/mm3 (1.96-9.15); NEUTROPHILS PERCENT AUTO 64 % (41-73); Platelet Count 145 K/mm3 (150-400); RDW Coefficient Variation 15.9 % (11.7-14.2); RDW Standard Deviation 50.8 fL (35.1-46.3); Red Blood Cell Count 3.71 M/mm3 (4.30-5.90); White Blood Cell Count 6.61 K/mm3 (4.00-11.30)
[2021-11-24 03:45] LABS: Magnesium, Blood 2.2 mg/dL (1.6-2.4)
[2021-11-24 03:46] LABS: Bun/Creatinine Ratio 26.2 (12.0-20.0); Calcium, Blood 9.1 mg/dL (8.5-10.1); Creatinine, Blood 1.22 mg/dL (0.60-1.20); Phosphorus, Blood 3.4 mg/dL (2.5-4.9); Potassium, Blood 3.9 mmol/L (3.5-5.5)
--- NOTE | 2021-11-24 05:31 | NUR ---
SHIFT SUMMERY PT HAD NO ACUTE CHANGES OVERNIGHT. PROPOFOL REMAINED AT 65MCGS. VSS, NO PRESSORS REQUIRED. PT HAS BEEN AFEBRILE. VENTILATION VIA ETT CONTINUES W/PT TOLERATING WELL, MINIMAL SECRETIONS WHEN IN-LINE SUCTIONING PERFORMED. POSSIBLE EXTUBATION TODAY. CALLED OVERNIGHT AND WAS GIVEN AN UPDATE ON PT CONDITION. TUBE FEEDING IS AT GOAL W/NO RESIDUALS.
--- NOTE | 2021-11-24 08:30 | NUR ---
CARE OF PT ASSUMED AT 0700. PT SEDATED ON PROPOFOL AT 65MCG FOR MECH VENT SAVI. PT WAKES UP AND NODS HIS HEAD NO TO CARE BUT DOES NOT FOLLOW COMMANDS OR NOD YES TO QUESTIONS. PT'S LUNGS ARE CLEAR, SATS >90% ON 30%FIO2. PT MAY BE EXTUBATED TODAY.
--- NOTE | 2021-11-24 09:24 | NUR ---
DR LEMON IN TO SEE PT. PROPOFOL PLACED ON STANDBY, VENT PLACED ON SPONT 01/02, 30%.
--- NOTE | 2021-11-24 10:05 | NUR ---
PT EXTUBATED AT 0954. PT'S SATS 92% ON 5L VIA N/C. AT BEDSIDE. PT C/O NAUSEA AFTER EXTUBATION; ZOFRAN ORDERED AND GIVEN. DR LEMON AT BEDSIDE.
--- NOTE | 2021-11-24 10:39 | NUR ---
DR MATTHEWS IN TO SEE PT; UPDATE GIVEN.
--- NOTE | 2021-11-24 18:58 | NUR ---
PT DID WELL OVERALL TODAY. SATS >90% ON 5L VIA N/C. RESP EVEN AND UNLABORED. OFFERED CHAIR TODAY; PT DECLINED, WILL PUSH FOR CHAIR TOMORROW. PT ABLE TO EAT REGULAR/ADA DIET FOR DINNER.
--- NOTE | 2021-11-24 20:35 | NUR ---
PATIENT AWAKE, USING CALL LIGHT APPROPRIATELY. VERY [facility] [place], SLIGHT FORGETFULNESS, BUT PLEASANT AND COOPERATIVE. RESP EVEN AND UNLABORED WHILE RESTING IN BED ON 5L/NC. PATIENT VERBALIZED HE USES 4L/NC AT HOME.
[2021-11-25 04:00] LABS: BASOPHILS ABSOLUTE AUTO 0.03 K/mm3 (0.00-0.23); BASOPHILS PERCENT AUTO 0 % (0-2); EOSINOPHILS ABSOLUTE AUTO 0.33 K/mm3 (0.00-0.68); EOSINOPHILS PERCENT AUTO 5 % (0-6); Hematocrit 35.9 % (37.0-53.0); IMMATURE GRAN ABSOLUTE AUTO 0.03 K/mm3 (0.00-0.10); IMMATURE GRAN PERCENT AUTO 0 % (0-1); LYMPHOCYTES ABSOLUTE AUTO 1.28 K/mm3 (0.84-5.20); LYMPHOCYTES PERCENT AUTO 19 % (21-46); MONOCYTES ABSOLUTE AUTO 0.32 K/mm3 (0.16-1.47); MONOCYTES PERCENT AUTO 5 % (4-13); Mean Corpuscular HGB 27.2 pg (26.0-34.0); Mean Corpuscular HGB Conc 30.6 g/dL (31.5-36.5); Mean Corpuscular Volume 89 fL (80-100); Mean Platelet Volume 11.5 fL (9.1-12.4); NEUTROPHILS ABSOLUTE AUTO 4.71 K/mm3 (1.96-9.15); NEUTROPHILS PERCENT AUTO 70 % (41-73); Platelet Count 167 K/mm3 (150-400); RDW Coefficient Variation 15.9 % (11.7-14.2); RDW Standard Deviation 51.7 fL (35.1-46.3); Red Blood Cell Count 4.05 M/mm3 (4.30-5.90)
[2021-11-25 04:22] LABS: Bun/Creatinine Ratio 19.4 (12.0-20.0); Calcium, Blood 9.3 mg/dL (8.5-10.1); Creatinine, Blood 1.08 mg/dL (0.60-1.20); Potassium, Blood 3.7 mmol/L (3.5-5.5)
--- NOTE | 2021-11-25 05:36 | NUR ---
SUMMARY PATIENT SLEEPING OFF AND ON T/O NIGHT. CONFUSED CONVERSATION AT TIMES, APPEARS TO BE CLEARING NIGHT PROGRESSED. SHIFTING SELF IN BED FOR COMFORT, NOT WANTING TO STAY ON HIS SIDE FOR ANY LENGTH OF TIME DURING THE NIGHT. REMAINS ON 5L/NC T/O NIGHT.
--- NOTE | 2021-11-25 10:02 | NUR ---
CARE OF PT ASSUMED AT 0700. PT AWAKE AND ALERT. DENIES COMPLAINTS. LUNGS CLEAR BUT VERY DIMINISHED. SATS >90% ON BASLINE 02 OF 5L. LIFT USED TO PLACE PT UP IN CHAIR.
--- NOTE | 2021-11-25 10:04 | NUR ---
DR MATTHEWS IN TO SEE PT. PT NOW MED W TELE STATUS. PHYSICAL THERAPY AND SPEECH ORDERED. AT BEDSIDE. CENTRAL LINE TO BE DC'D AFTER PERIPHERAL PLACED.
[2021-11-25 13:22] LABS: Vancomycin, Trough 13.7 ug/mL (5.0-10.0)
--- NOTE | 2021-11-25 15:44 | NUR ---
PT GIVEN BATH THEN ASSISTED BACK TO BED W WALKER; 2 PERSON SBA. POWERGLIDE PLACED TO CAROL. CENTRAL LINE TO LEFT GROIN DC'D. VASQUES CATH DC'D. PT RESTING IN BED NOW. POOR APPETITE.
--- NOTE | 2021-11-25 18:21 | NUR ---
PT RESTING IN BED W/O COMPLAINTS. POOR APPETITE TODAY. SATS >90% ON 4L O2 VIA N/C; AT BASELINE. OOB TO CHAIR TODAY, 2 PERSON ASSIST BACK TO BED. SPEECH EVAL COMPLETED. FOLET CATH DC'D EARLIER THIS SHIFT, PT HAS URINAL AT BEDSIDE BUT DOES NOT FEEL THE URGE TO VOID YET.
--- NOTE | 2021-11-25 19:17 | NUR ---
ASSUMED PT CARE AT 1900 PT SITTING UP IN BED. ALERT AND INTERACTING WITH STAFF. HARD OF HEARING DESPITE HEARING AIDS BEING IN PLACE. PT IS SALINE LOCKED AT THIS TIME. NOTED TO BE NSR WITH HR 70'S. ON 4L OF OXYGEN WITH SPO2 98%. PT APPEARS COMFORTABLE AT THIS TIME. CALL LIGHT WITHIN REACH. SEE SHIFT ASSESSMENT FOR FURTHER DETAILS.
--- NOTE | 2021-11-25 19:42 | NUR ---
CALL OUT TO DR. AYALA REQUESTED BOWEL CARE MEDS D/T PT NOT HAVING A BM X4 DAYS. NEW ORDERS FOR MIRALAX DAILY AND DSS 100MG BID.
[2021-11-26 05:26] LABS: BASOPHILS ABSOLUTE AUTO 0.04 K/mm3 (0.00-0.23); BASOPHILS PERCENT AUTO 1 % (0-2); EOSINOPHILS ABSOLUTE AUTO 0.35 K/mm3 (0.00-0.68); EOSINOPHILS PERCENT AUTO 4 % (0-6); Hematocrit 36.1 % (37.0-53.0); Hemoglobin 10.9 g/dL (13.5-17.5); IMMATURE GRAN ABSOLUTE AUTO 0.04 K/mm3 (0.00-0.10); IMMATURE GRAN PERCENT AUTO 1 % (0-1); LYMPHOCYTES ABSOLUTE AUTO 1.49 K/mm3 (0.84-5.20); LYMPHOCYTES PERCENT AUTO 18 % (21-46); MONOCYTES ABSOLUTE AUTO 0.48 K/mm3 (0.16-1.47); MONOCYTES PERCENT AUTO 6 % (4-13); Mean Corpuscular HGB Conc 30.2 g/dL (31.5-36.5); Mean Corpuscular Volume 90 fL (80-100); Mean Platelet Volume 10.6 fL (9.1-12.4); NEUTROPHILS ABSOLUTE AUTO 5.89 K/mm3 (1.96-9.15); NEUTROPHILS PERCENT AUTO 71 % (41-73); Platelet Count 160 K/mm3 (150-400); RDW Coefficient Variation 15.8 % (11.7-14.2); RDW Standard Deviation 52.8 fL (35.1-46.3); Red Blood Cell Count 4.03 M/mm3 (4.30-5.90); White Blood Cell Count 8.29 K/mm3 (4.00-11.30)
--- NOTE | 2021-11-26 05:41 | NUR ---
END OF SHIFT SUMMARY PT REMAINS ALERT AND VERY PLEASANT AND COOPERATIVE WITH CARES; OCCASIONAL CONFUSION NOTED AT BASELINE. PT DOESN'T RECALL WHY HE CAME TO THE HOSPITAL. INFORMED HIM HE WAS IN RESPIRATORY FAILURE WITH ELEVATED POTASSIUM LEVELS SECONDARY TO POSSIBLY TAKING TOO MANY OF HIS MEDICATIONS, PER . PER REPORT, STATED SHE HAS NOTICED AN INCREASE IN HIS FORGETFULNESS AND THAT SHE WILL BE MANAGING HIS MEDICATIONS FROM HERE ON OUT. PT WAS NOTED TO BE RETAINING URINE LAST NIGHT. ORDERS OBTAINED TO BLADDER SCAN WITH 545CC NOTED. STRAIGHT CATHED PER ORDERS. PT VERBALIZED RELIEF AND GRATITUDE. ATTEMPTING STANDING AT SIDE OF BED TO URINATE IN URINAL FIRST; HOWEVER, UNSUCCESSFUL. PT WAS A TWO PERSON SBA D/T BEING UNSTEADY. PT HAS ONE HEARING AID TO RIGHT EAR. STATES HIS TOOK HOME HIS OTHER HEARING AID. HAD A DIFFICULT TIME FALLING ASLEEP; THEREFORE, PRN TRAZADONE WAS ADMINISTERED AND EFFECTIVE. CALL LIGHT IS WITHIN REACH; HOWEVER, PT HAS NOT USED THIS SHIFT. DENIED TURNING OR REPOSITIONING WITH PILLOWS. PT ABLE TO MAKE SLIGHT CHANGES IN POSITION HIMSELF. WILL CONTINUE TO MONITOR UNTIL REPORT IS HANDED OFF TO ONCOMING RN.
[2021-11-26 05:50] LABS: Bun/Creatinine Ratio 20.2 (12.0-20.0); Calcium, Blood 9.4 mg/dL (8.5-10.1); Creatinine, Blood 0.99 mg/dL (0.60-1.20)
--- NOTE | 2021-11-26 08:55 | NUR ---
AM NOTE.... ASSUMED CARE OF PT AT 0700 THE PT IS A&Ox4 WITH SOME FORGETFULLNESS AT TIMES SUCH THE PT ASKED WHY HE WAS AT THE HOSPITAL AND WHY HE NEEDED SURGERY. THIS RN RE-ORIENTED THE PT TO WHY HE WAS HERE AND WHAT HIS PLAN OF CARE WAS THE PT STATED HIS UNDERSTANDING. THE PT'S VS STABLE THIS AM, THE PT DENIES ANY CHEST PAIN OR INCREASED SOB. THE PT IS ON 4L NC WITH O2 SATS >90% L/S CLEAR AND DIM T/O. THE PT IS IN SR IN THE 80'S BP STABLE, THE PT HAS 1+ EDEMA NOTED TO HIS BLE. BT PRESENT AND HYPOACTIVE, ABD IS SOFT AND NONTENDER TO PALPATION. CALL LIGHT IN REACH WILL CONTINUE TO MONITOR.
--- NOTE | 2021-11-26 13:59 | NUR ---
PT UPDATE.... THE PT HAD NOT VOIDED SINCE HE WAS STRAIGHT CATHED ON NOC SHIFT, THE PT ATTEMPTED TO VOID USING THE URINAL AND THE BCS BUT WAS UNABLE TO. A BLADDER SCAN WAS DONE THAT SHOWED >562MLS IN HIS BLADDER. THE PROVIDER WAS CALLED AND AN ORDER WAS OBTAINED FOR 0.8MG OF FLOWMAX AND TO STRAIGHT CATH THE PT. WILL CONTINUE TO MONITOR.
--- NOTE | 2021-11-26 18:34 | NUR ---
SHIFT SUMMARY.... NO ACUTE NEGATIVE CHANGES NOTED THIS SHIFT. THE PT'S VS HAVE BEEN STABLE. THE PT WORKED WITH PT/OT AND GOT UP INTO THE RECLINER CHAIR WITH 2P ASSIST W/FWW AND GAIT BELT. THE PT WAS UP IN THE CHAIR FOR SEVERAL HOURS BEFORE GETTING BACK INTO BED WITH HELP FROM STAFF. THE PT ATTEMPTED TO VOID USING THE URINAL AND STANDING WITH THE WALKER WELL THE BSC, THE PT WAS UNABLE TO VOID AND A BLADDER SCAN WAS DONE THAT SHOWED >562MLS IN HIS BLADDER, THE PROVIDER WAS CALLED AND NEW ORDERS FOR FLOWMAX AND STRAIGHT CATH WAS OBTAINED, THE PT WAS MEDICATED PER ORDERS AND 850MLS OF URINE WAS DRAINED FROM HIS BLADDER. CALL LIGHT IN REACH WILL CONTINUE TO MONITOR UNTIL REPORT IS GIVEN TO ONCOMING RN.
--- NOTE | 2021-11-26 20:37 | NUR ---
ASSUMED CARE OF PT AT 1915. REPORT RECEIVED. PT PRESENTS IN BED. ALERT AND ORIENTED. PLEASANT AND COOPERATIVE WITH CARE AND ASSESSMENT. YUHAAVIATAM. DENIES DYSPNEA OR CHEST PAIN. ABLE TO MOVE ABOUT IN BED ON HIS OWN. CALL LIGHT WITHIN REACH. PT DESCRIBES HIS LEFT FOOT IS TENDER MUCH MORE SO IN PAST DAY. MILD SWELLING DIFFERENCE LEFT VERSUS RIGHT. EQUAL IN WARMTH AND COLOR BI LAT. WILL RECEIVE DOSE OF SCHEDULED NEURONTIN THIS EVENING. WILL MONITOR. WILL REVIEW CHART AND PLAN OF CARE FOR THIS PT.
--- NOTE | 2021-11-26 22:16 | NUR ---
PT CURRENTLY RESTING IN BED WITHOUT COMPLAINTS. NO APPARENT DISTRESS. WILL MONITOR.
--- NOTE | 2021-11-27 05:30 | NUR ---
PT HAS BEEN ABLE TO MOVE ABOUT IN BED ON HIS OWN. DENIES COMPLAINTS. THIS MORNING HAS ASKED FOR ASSIST TO GET OUT OF BED TO BEDSIDE RECLINER CHAIR. PT ABLE TO STAND WITH MINIMAL ASSIST AND USE FWW TO AMBULATE TO RECLINER CHAIR WITH COACHING. PT STATED HE WAS SURPRISED HOW WELL HE WAS ABLE TO ACCOMPLISH THIS. WILL CONTINUE TO MONITOR PT, AND WILL REPORT OFF TO ONCOMING RN.
--- NOTE | 2021-11-27 12:43 | NUR ---
REASSESSMENT PT SPENT A COUPLE HOURS SITTING UP IN THE CHAIR THIS MORNING AND THEN HAS BEEN BACK IN BED. HE REMAINS ALERT AND ORIENTED. LUNGS ARE CLEAR BUT DIM, ON HOME SETTINGS OF 4L/NC. SR, BP STABLE. NO VOID YET THIS AM. WILL HAVE PT TRY AFTER HE FINISHES EATING LUNCH. PT'S WFIE AT THE BEDSIDE. CONTINUING TO MONITOR.
[2021-11-27 13:42] LABS: Vancomycin, Trough 16.3 ug/mL (5.0-10.0)
--- NOTE | 2021-11-27 14:54 | NUR ---
TRANSFER PT TRANSFERRED TO 313 VIA WITH NURSE AND AIDE. REPORT GIVEN TO PRABHU CHASE. PT'S WITH HIM AT TIME OF TRANSFER. PT TOLERATED TRANSFER WELL. ALL BELONGINGS INCLUDING HEARING AIDS MOVED WITH PT TO NEW ROOM.
--- NOTE | 2021-11-27 14:55 | NUR ---
PT ARRIVED TO UNIT PT ARRIVED VIA , PLAN TO OBTAIN TELE. 1X ASSIST TO BED. @ BEDSIDE. VANCO INFUSING. PT C/O PAIN ON BOTTOM, DENIES NEED FOR MED, PILLOW PROVIDED UNDER L HIP.
--- NOTE | 2021-11-28 04:45 | NUR ---
SHIFT SUMMARY ADMITTED FOR ACUTE ON CHRONIC RESPIRATORY FAILURE. FULL CODE. CONTACT PRECAUTIONS FOR MRSA IN NARES. TELEMETRY: NSR @ 72 BPM. 4 LPM O2 VIA NC IS BASELINE. 1 ASSIST W/FWW - BSC. BLADDER SCAN Q8 HRS. ADA/SOFT BITE SIZE DIET. POWERGLIDE - RUE. A&O X4. BLE 1+ EDEMA.
[2021-11-28 05:19] LABS: BASOPHILS ABSOLUTE AUTO 0.03 K/mm3 (0.00-0.23); BASOPHILS PERCENT AUTO 0 % (0-2); EOSINOPHILS ABSOLUTE AUTO 0.44 K/mm3 (0.00-0.68); EOSINOPHILS PERCENT AUTO 5 % (0-6); Hematocrit 32.7 % (37.0-53.0); Hemoglobin 9.7 g/dL (13.5-17.5); IMMATURE GRAN ABSOLUTE AUTO 0.03 K/mm3 (0.00-0.10); IMMATURE GRAN PERCENT AUTO 0 % (0-1); LYMPHOCYTES ABSOLUTE AUTO 1.48 K/mm3 (0.84-5.20); LYMPHOCYTES PERCENT AUTO 18 % (21-46); MONOCYTES ABSOLUTE AUTO 0.61 K/mm3 (0.16-1.47); MONOCYTES PERCENT AUTO 7 % (4-13); Mean Corpuscular HGB 27.2 pg (26.0-34.0); Mean Corpuscular HGB Conc 29.7 g/dL (31.5-36.5); Mean Corpuscular Volume 92 fL (80-100); Mean Platelet Volume 10.4 fL (9.1-12.4); NEUTROPHILS ABSOLUTE AUTO 5.75 K/mm3 (1.96-9.15); NEUTROPHILS PERCENT AUTO 69 % (41-73); Platelet Count 171 K/mm3 (150-400); RDW Coefficient Variation 15.6 % (11.7-14.2); RDW Standard Deviation 52.4 fL (35.1-46.3); Red Blood Cell Count 3.56 M/mm3 (4.30-5.90); White Blood Cell Count 8.34 K/mm3 (4.00-11.30)
[2021-11-28 05:47] LABS: Albumin, Blood 2.8 g/dL (3.4-5.0); Albumin/Globulin Ratio 0.8 (0.8-1.8); Bilirubin, Total 0.3 mg/dL (0.1-1.0); Bun/Creatinine Ratio 23.7 (12.0-20.0); Creatinine, Blood 1.18 mg/dL (0.60-1.20); Globulin, Blood 3.7 g/dL (2.2-4.0); Potassium, Blood 4.1 mmol/L (3.5-5.5); Total Protein, Blood 6.5 g/dL (6.4-8.2)
[2021-11-28 13:29] LABS: Vancomycin, Trough 15.9 ug/mL (5.0-10.0)
[2021-11-28] MEDS ORDERED: TAMS.4ER PO (17:47)
[2021-11-28] MEDS ORDERED: LINE600 PO (17:48)
--- NOTE | 2021-11-28 18:28 | NUR ---
DISCHARGE PT A&O X4 @ TIME OF D/C. AMBULATING UTILIZING FWW W/ STEADY GAIT. TOLERATING PO INTAKE, VOIDING WELL. TELE DC'ED, POWERGLIDE DC'ED. SPOUSE @ BEDSIDE. PT PROVIDED W/ VERBAL AND WRITTEN DIRECTION, PT VERBALIZED UNDERSTANDING. 4L NC. WC ESCORT TO CURBSIDE, SPOUSE PROVIDED TRANSPORT.
== END 2021-11-28 18:25 | disposition home health service (06) | DRG 871 ==
LOC: ER 18:41 → ICUE 23:07 → ICUW 23:07 → ICUE 11-22 00:48 → MEDS 11-27 14:43
PROVIDERS: Emergency Medicine; Hospitalist; Internal Medicine; Internal Medicine Critical Care Medicine; Physician Assistant; ADMIT Internal Medicine
PROC: 3E03329 Introduction of Other Anti-infective into Peripheral Vein, Percutaneous Approach (ICD-10-PCS; principal; 2021-11-21)
PROC: 3E033XZ Introduction of Vasopressor into Peripheral Vein, Percutaneous Approach (ICD-10-PCS; 2021-11-21)
PROC: 0BH18EZ Insertion of Endotracheal Airway into Trachea, Via Natural or Artificial Opening Endoscopic (ICD-10-PCS; 2021-11-21)
PROC: 06HY33Z Insertion of Infusion Device into Lower Vein, Percutaneous Approach (ICD-10-PCS; 2021-11-21)
PROC: 5A1945Z Respiratory Ventilation, 24-96 Consecutive Hours (ICD-10-PCS; 2021-11-22)
DX: A41.02 Sepsis due to Methicillin resistant Staphylococcus aureus (principal); J15.212 Pneumonia due to Methicillin resistant Staphylococcus aureus; J96.21 Acute and chronic respiratory failure with hypoxia; R65.21 Severe sepsis with septic shock; N17.9 Acute kidney failure, unspecified; J44.0 Chronic obstructive pulmonary disease with (acute) lower respiratory infection; Z20.822 Contact with and (suspected) exposure to COVID-19; D69.6 Thrombocytopenia, unspecified; Z78.1 Physical restraint status; I10 Essential (primary) hypertension; G47.33 Obstructive sleep apnea (adult) (pediatric); G25.81 Restless legs syndrome; K21.9 Gastro-esophageal reflux disease without esophagitis; E11.40 Type 2 diabetes mellitus with diabetic neuropathy, unspecified; I25.10 Atherosclerotic heart disease of native coronary artery without angina pectoris; E66.9 Obesity, unspecified; E87.5 Hyperkalemia; Z68.29 Body mass index [BMI] 29.0-29.9, adult; Z95.5 Presence of coronary angioplasty implant and graft; Z98.890 Other specified postprocedural states; Z87.891 Personal history of nicotine dependence; Z99.89 Dependence on other enabling machines and devices; Z88.6 Allergy status to analgesic agent; Z79.84 Long term (current) use of oral hypoglycemic drugs; Z79.899 Other long term (current) drug therapy; Z99.81 Dependence on supplemental oxygen
CPT/HCPCS: 0241U; 31500; 36415; 36600; 51701; 51702; 70450; 71045; 71046; 71260; 74177; 80047; 80048; 80053; 80202; 81001; 81003; 82803; 82947; 83605; 83690; 83735; 83880; 84100; 84484; 85014; 85025; 85027; 87040; 87449; 92526; 92610; 93005; 93010; 93306; 94002; 94003; 94640; 94644; 94660; 94664; 94760; 96365; 96367; 96368; 96375; 97110; 97116; 97162; 97530; 99285-25; A9270; C1751; C9113; J0456; J0610; J0696; J1650; J1815; J2250; J2405; J2704; J2930; J3010; J3370; J3475; J7030; J7050; J7060; J7120; J7799; Q9967

== ENCOUNTER 2022-04-22 17:09 | Inpatient (IN) | payer OTHER ==
[~2022-04-22] VITALS: Ht 172.7 cm; Wt 105.1 kg
[~2022-04-22 17:09] MED LIST changes: +LINE600 PO; +TAMS.4ER PO
[2022-04-22 17:23] LABS: PO2 Arterial 101 mmHg (80-100); pH Blood Arterial 7.26 (7.35-7.45)
[2022-04-22 17:24] LABS: PCO2 Arterial 92.8 mmHg (35-45)
[2022-04-22 17:26] LABS: BASOPHILS ABSOLUTE AUTO 0.04 K/mm3 (0.00-0.23); BASOPHILS PERCENT AUTO 0 % (0-2); EOSINOPHILS ABSOLUTE AUTO 0.49 K/mm3 (0.00-0.68); EOSINOPHILS PERCENT AUTO 5 % (0-6); Hematocrit 40.3 % (37.0-53.0); Hemoglobin 12.1 g/dL (13.5-17.5); IMMATURE GRAN ABSOLUTE AUTO 0.04 K/mm3 (0.00-0.10); IMMATURE GRAN PERCENT AUTO 0 % (0-1); LYMPHOCYTES ABSOLUTE AUTO 1.38 K/mm3 (0.84-5.20); LYMPHOCYTES PERCENT AUTO 15 % (21-46); MONOCYTES ABSOLUTE AUTO 0.77 K/mm3 (0.16-1.47); MONOCYTES PERCENT AUTO 8 % (4-13); Mean Corpuscular HGB 27.1 pg (26.0-34.0); Mean Corpuscular Volume 90 fL (80-100); Mean Platelet Volume 9.7 fL (9.1-12.4); NEUTROPHILS ABSOLUTE AUTO 6.63 K/mm3 (1.96-9.15); NEUTROPHILS PERCENT AUTO 71 % (41-73); Platelet Count 208 K/mm3 (150-400); RDW Standard Deviation 50.1 fL (35.1-46.3); Red Blood Cell Count 4.46 M/mm3 (4.30-5.90); White Blood Cell Count 9.35 K/mm3 (4.00-11.30)
[2022-04-22] MEDS ORDERED: LISI20 PO (17:33)
[2022-04-22] MEDS ORDERED: ESCI10 PO (17:34)
[2022-04-22 17:42] LABS: Albumin, Blood 3.3 g/dL (3.4-5.0); Albumin/Globulin Ratio 0.8 (0.8-1.8); Bilirubin, Total 0.4 mg/dL (0.1-1.0); Bun/Creatinine Ratio 16.4 (12.0-20.0); Calcium, Blood 9.3 mg/dL (8.5-10.1); Creatinine, Blood 0.97 mg/dL (0.60-1.20); Globulin, Blood 4.4 g/dL (2.2-4.0); Potassium, Blood 4.1 mmol/L (3.5-5.5); Total Protein, Blood 7.7 g/dL (6.4-8.2)
[2022-04-22 19:38] LABS: Influenza A, PCR NEGATIVE (NEGATIVE); Influenza B, PCR NEGATIVE (NEGATIVE); Resp Syncytial Virus, PCR NEGATIVE (NEGATIVE)
[2022-04-22 19:43] LABS: SARS-Cov-2 (COVID-19) PCR, MMC POSITIVE (NEGATIVE)
--- NOTE | 2022-04-22 22:00 | NUR ---
PT ARRIVED TO ICU FROM ED AT 2200. PT INTUBATED ACVC 60% TV 530 RR18 PEEP 5. PROPOFOL AT 10 MCG/KG/MIN. FAMILY IN WAITING ROOM.
[2022-04-22 22:19] LABS: PCO2 Arterial 53.4 mmHg (35-45); PO2 Arterial 67.3 mmHg (80-100); pH Blood Arterial 7.38 (7.35-7.45)
[2022-04-23 01:30] LABS: BASOPHILS ABSOLUTE AUTO 0.01 K/mm3 (0.00-0.23); BASOPHILS PERCENT AUTO 0 % (0-2); EOSINOPHILS ABSOLUTE AUTO 0.01 K/mm3 (0.00-0.68); EOSINOPHILS PERCENT AUTO 0 % (0-6); Hematocrit 32.5 % (37.0-53.0); Hemoglobin 9.9 g/dL (13.5-17.5); IMMATURE GRAN ABSOLUTE AUTO 0.04 K/mm3 (0.00-0.10); IMMATURE GRAN PERCENT AUTO 1 % (0-1); LYMPHOCYTES ABSOLUTE AUTO 0.38 K/mm3 (0.84-5.20); LYMPHOCYTES PERCENT AUTO 5 % (21-46); MONOCYTES ABSOLUTE AUTO 0.07 K/mm3 (0.16-1.47); MONOCYTES PERCENT AUTO 1 % (4-13); Mean Corpuscular HGB Conc 30.5 g/dL (31.5-36.5); Mean Corpuscular Volume 89 fL (80-100); Mean Platelet Volume 9.9 fL (9.1-12.4); NEUTROPHILS ABSOLUTE AUTO 6.96 K/mm3 (1.96-9.15); NEUTROPHILS PERCENT AUTO 93 % (41-73); Platelet Count 182 K/mm3 (150-400); RDW Coefficient Variation 15.4 % (11.7-14.2); RDW Standard Deviation 49.8 fL (35.1-46.3); Red Blood Cell Count 3.66 M/mm3 (4.30-5.90); White Blood Cell Count 7.47 K/mm3 (4.00-11.30)
--- NOTE | 2022-04-23 05:05 | NUR ---
POD1 FOR A RIGHT HIP PINNING. DRESSINGS ARE C/D/I. CIRCULATION AND SENSATION REMAIN INTACT. MEDCATED FOR PAIN WITH NORCO T/O THE NIGHT. PT WAS ABLE TO SHIFT HIS WEIGHT IN BED BUT REFUSED REPOSITIONING T/O THE NIGHT. THE PT SLEPT ON AND OFF. TOLLERATED PO INTAKE W/O N/V, PASSING FLATTUS AND URINE W/O DIFFICULTY. PLAN FOR PT TO WORK WITH PT/OT TODAY AND EVALUATE WHEN D/C HOME IS SAFE. THE PATIENT IS CURRENTLY RESTING IN BED, IN NO DISTRESS, CALL LIGHT IN REACH.
[2022-04-23 05:50] LABS: PCO2 Arterial 50.9 mmHg (35-45); PO2 Arterial 64.4 mmHg (80-100); pH Blood Arterial 7.41 (7.35-7.45)
--- NOTE | 2022-04-23 05:50 | NUR ---
PATIENT REMAINS INTUBATED, ACVC 60% TV 530 RR 18 PEEP 5. VASQUES DRAINING. PROPOFOL AT 30 MCG/MIN.
[2022-04-23 10:27] LABS: Source, Urine Foley catheter
[2022-04-23 10:41] LABS: Appearance, Urine Turbid (Clear); Bilirubin, Urine Neg (Neg); Blood, Urine 3+ (Neg); Color, Urine Yellow (P-Yellow); Glucose Qualitative, Urine 4+ (Neg); Ketones, Urine 2+ (Neg); Leukocyte Esterase, Urine Neg (Neg); Nitrite, Urine Neg (Neg); Protein, Urine 2+ (Neg); Urobilinogen, Urine NORM (Normal)
[2022-04-23 10:42] LABS: Amorphous Heavy (0-Heavy)
[2022-04-23 10:43] LABS: Bacteria Not Seen /hpf; Red Blood Cells, Urine 0-2 /hpf (0-2); Squamous Epithelial Cells Not Seen /hpf (Few); White Blood Cells, Urine 0-2 /hpf (0-5)
[2022-04-23 10:44] LABS: Mucus Light (0-Heavy)
[2022-04-23 10:45] LABS: Hyaline Casts 0-2 /lpf (0-2)
[2022-04-23] MEDS ORDERED: GABA100 PO (12:18)
--- NOTE | 2022-04-23 17:55 | NUR ---
SHIFT SUMMARY NO ACUTE CHANGES THIS SHIFT. PT REMAINS INTUBATED AND SEDATED. VENT SETTINGS UNCHANGED AT AC 18, TV 530, PEEP 5, FIO2 60%. PT IS ALERT AND ORIENTED WHEN SEDATION IS DECREASED. PT ABLE TO WRITE ON BOARD TO COMMUNICATE WELL. PT RESTING QUIETLY AT THIS TIME WITH PROPOFOL AT 60 MCG/KG/MIN. OGT IN PLACE TO LIS WITH MINIMAL OUTPUT NOTED. VASQUES TEMP PROBE IN PLACE WITH CLOUDY YELLOW OUTPUT NOTED. SBW RESTRAINTS IN PLACE. VITAL SIGNS HAVE REMAINED STABLE. PT SPOUSE AT BEDSIDE MOST OF THIS AFTERNOON. WILL CONTINUE TO MONITOR AND REPORT OFF TO ONCOMING RN.
[2022-04-24 03:22] LABS: BASOPHILS ABSOLUTE AUTO 0.01 K/mm3 (0.00-0.23); BASOPHILS PERCENT AUTO 0 % (0-2); EOSINOPHILS PERCENT AUTO 0 % (0-6); Hemoglobin 10.4 g/dL (13.5-17.5); IMMATURE GRAN ABSOLUTE AUTO 0.07 K/mm3 (0.00-0.10); IMMATURE GRAN PERCENT AUTO 1 % (0-1); LYMPHOCYTES ABSOLUTE AUTO 0.65 K/mm3 (0.84-5.20); LYMPHOCYTES PERCENT AUTO 7 % (21-46); MONOCYTES ABSOLUTE AUTO 0.51 K/mm3 (0.16-1.47); MONOCYTES PERCENT AUTO 5 % (4-13); Mean Corpuscular HGB 27.5 pg (26.0-34.0); Mean Corpuscular HGB Conc 32.5 g/dL (31.5-36.5); Mean Corpuscular Volume 85 fL (80-100); Mean Platelet Volume 10.3 fL (9.1-12.4); NEUTROPHILS ABSOLUTE AUTO 8.33 K/mm3 (1.96-9.15); NEUTROPHILS PERCENT AUTO 87 % (41-73); Platelet Count 227 K/mm3 (150-400); RDW Coefficient Variation 15.4 % (11.7-14.2); RDW Standard Deviation 47.4 fL (35.1-46.3); Red Blood Cell Count 3.78 M/mm3 (4.30-5.90); White Blood Cell Count 9.57 K/mm3 (4.00-11.30)
[2022-04-24 03:43] LABS: Albumin, Blood 2.6 g/dL (3.4-5.0); Anion Gap 6 mmol/L (6-16); Blood Urea Nitrogen 23 mg/dL (8-24); Bun/Creatinine Ratio 26.3 (12.0-20.0); CO2, Blood 33 mmol/L (21-32); Calcium, Blood 8.8 mg/dL (8.5-10.1); Chloride, Blood 104 mmol/L (98-108); Creatinine, Blood 0.88 mg/dL (0.60-1.20); Glomerular Filtration Rate 92 (60-); Glucose, Blood 321 mg/dL (70-99); Phosphorus, Blood 1.7 mg/dL (2.5-4.9); Potassium, Blood 3.5 mmol/L (3.5-5.5); Sodium, Blood 143 mmol/L (136-145)
--- NOTE | 2022-04-24 06:17 | NUR ---
SHIFT SUMMARY PATIENT WEANED DOWN ON SEDATION OVERNIGHT, PROPOFOL DECREASED FROM 60 TO 40 MCG/KG/MIN. RASS -2. INTUBATED ACVC 60% TV 530 RR 18 PEEP 5. NSR AND BP STABLE. OGT CLAMPED. VASQUES IN PLACE WITH ADEQUATE UO.
--- NOTE | 2022-04-24 08:00 | NUR ---
ASSUMED CARE PT IS INTUBATED W/ VENT SETTINGS AT 18/530/5/60%; ETT 8.0 27 CM LIPS/NARES; SPO2 >92%. MAP >65. PROPOFOL GTT AT 40MCG. COARSE LUNG SOUNDS, HYPOACTIVE BOWEL TONES, AND SOME EDEMA NOTED. RIGHT LUNG HAS RHONCHI UPON EXHALATION; MINIMAL SPUTUM WITH SUCTIONING.
--- NOTE | 2022-04-24 12:15 | NUR ---
UPDATE PT HAS PROPOFOL ON STANDBY. ALERT AND ORIENTED X4 AND COMMUNICATES APPROPRIATELY THROUGH WRITING/NODDING/SHAKING OF HEAD. PT IS TREMULOUS, SPOUSE STATED THAT THIS HAPPENED LAST TIME HE WAS IN THE HOSPITAL. PT HAD ONE EPISODE OF HR GOING UP TO 170, BUT HAS SINCE BEEN IN THE 100S WHILE SEDATION IS OFF.
--- NOTE | 2022-04-24 17:31 | NUR ---
SHIFT SUMMARY PT IS ALERT AND ORIENTED X4 W/ PROPOFOL ON SB. VENTILATOR SETTINGS ON SPONTANEOUS 8/60%/8 PEEP. RESTRAINTS HAVE BEEN OFF FOR MAJORITY OF DAY, EXCEPT FOR FEW OCCASIONS WHERE PT REQUESTS TO BE RESTRAINED. PT HAS BEEN TREMULOUS, WHICH OCCURED DURING HIS LAST VISIT, BUT MORE SEVERE THIS TIME.
[2022-04-25 04:00] LABS: BASOPHILS ABSOLUTE AUTO 0.01 K/mm3 (0.00-0.23); BASOPHILS PERCENT AUTO 0 % (0-2); EOSINOPHILS PERCENT AUTO 0 % (0-6); Hematocrit 38.5 % (37.0-53.0); Hemoglobin 12.3 g/dL (13.5-17.5); IMMATURE GRAN ABSOLUTE AUTO 0.16 K/mm3 (0.00-0.10); IMMATURE GRAN PERCENT AUTO 1 % (0-1); LYMPHOCYTES ABSOLUTE AUTO 0.72 K/mm3 (0.84-5.20); LYMPHOCYTES PERCENT AUTO 5 % (21-46); MONOCYTES ABSOLUTE AUTO 0.55 K/mm3 (0.16-1.47); MONOCYTES PERCENT AUTO 4 % (4-13); Mean Corpuscular HGB Conc 31.9 g/dL (31.5-36.5); Mean Corpuscular Volume 85 fL (80-100); Mean Platelet Volume 10.6 fL (9.1-12.4); NEUTROPHILS ABSOLUTE AUTO 12.06 K/mm3 (1.96-9.15); NEUTROPHILS PERCENT AUTO 89 % (41-73); Platelet Count 269 K/mm3 (150-400); RDW Coefficient Variation 15.8 % (11.7-14.2); RDW Standard Deviation 48.7 fL (35.1-46.3); Red Blood Cell Count 4.55 M/mm3 (4.30-5.90)
[2022-04-25 04:14] LABS: Albumin, Blood 2.7 g/dL (3.4-5.0); Anion Gap 7 mmol/L (6-16); Blood Urea Nitrogen 31 mg/dL (8-24); Bun/Creatinine Ratio 34.6 (12.0-20.0); CO2, Blood 31 mmol/L (21-32); Calcium, Blood 8.7 mg/dL (8.5-10.1); Chloride, Blood 106 mmol/L (98-108); Glomerular Filtration Rate 91 (60-); Glucose, Blood 292 mg/dL (70-99); Phosphorus, Blood 3.9 mg/dL (2.5-4.9); Potassium, Blood 3.8 mmol/L (3.5-5.5); Sodium, Blood 144 mmol/L (136-145)
--- NOTE | 2022-04-25 06:41 | NUR ---
PATIENT HAD PANIC ATTACK DURING BED BATH OVERNIGHT. HR JUMPED TO 150'S AND BP INCREASED TO 200'S. MD NOTIFIED AND ONE DOSE OF ATIVAN GIVEN WITH GOOD EFFECT. BP ELEVATED THROUGHOUT NIGHT. PRN HYDRALAZINE ADDED. PATIENT OTHERWISE UNCHANGED FROM PREVIOUS SHIFT.
--- NOTE | 2022-04-25 08:00 | NUR ---
Assumed care at approximately 0700. Report received from elder RN. Pt in bed, ventilated via ETT. Vent settings: AC/VC18/530/8/60%. Pt alert, no sedation infusing. PG CAROL, IV L/AC. Rodrigues catheter in place. VS stable, no acute needs noted. Continue to monitor.
--- NOTE | 2022-04-25 13:18 | NUR ---
EXTUBATION PT EXTUBATED AT APPROXIMATELY 1145. RT AT BEDSIDE, PT TOLERATED WELL. PT SWITCHED FROM VENTILATOR TO HEATED, HIGH-FLOW NC, 35LPM, 55%. CONTINUE TO MONITOR.
--- NOTE | 2022-04-25 18:37 | NUR ---
SHIFT SUMMARY Pt up to chair in am, extubated at approximately 1130, see note. Currently resting in bed, on high flow NC, 35LPM, 55%. IV access in L/ac. See notes and shift assessment for further details. Will continue to monitor and report off to dayshift RN.
[2022-04-25 22:25] LABS: Vancomycin, Trough 17.4 ug/mL (5.0-10.0)
[2022-04-26 03:48] LABS: BASOPHILS ABSOLUTE AUTO 0.02 K/mm3 (0.00-0.23); BASOPHILS PERCENT AUTO 0 % (0-2); EOSINOPHILS PERCENT AUTO 0 % (0-6); Hematocrit 37.7 % (37.0-53.0); Hemoglobin 11.8 g/dL (13.5-17.5); IMMATURE GRAN ABSOLUTE AUTO 0.17 K/mm3 (0.00-0.10); IMMATURE GRAN PERCENT AUTO 1 % (0-1); LYMPHOCYTES ABSOLUTE AUTO 0.82 K/mm3 (0.84-5.20); LYMPHOCYTES PERCENT AUTO 7 % (21-46); MONOCYTES PERCENT AUTO 3 % (4-13); Mean Corpuscular HGB 26.7 pg (26.0-34.0); Mean Corpuscular HGB Conc 31.3 g/dL (31.5-36.5); Mean Corpuscular Volume 85 fL (80-100); Mean Platelet Volume 10.1 fL (9.1-12.4); NEUTROPHILS ABSOLUTE AUTO 10.86 K/mm3 (1.96-9.15); NEUTROPHILS PERCENT AUTO 88 % (41-73); Platelet Count 248 K/mm3 (150-400); RDW Coefficient Variation 15.8 % (11.7-14.2); RDW Standard Deviation 49.1 fL (35.1-46.3); Red Blood Cell Count 4.42 M/mm3 (4.30-5.90); White Blood Cell Count 12.27 K/mm3 (4.00-11.30)
[2022-04-26 04:13] LABS: Albumin, Blood 2.6 g/dL (3.4-5.0); Anion Gap 5 mmol/L (6-16); Blood Urea Nitrogen 38 mg/dL (8-24); CO2, Blood 33 mmol/L (21-32); Calcium, Blood 8.7 mg/dL (8.5-10.1); Chloride, Blood 105 mmol/L (98-108); Creatinine, Blood 0.95 mg/dL (0.60-1.20); Glomerular Filtration Rate 86 (60-); Glucose, Blood 286 mg/dL (70-99); Phosphorus, Blood 4.2 mg/dL (2.5-4.9); Potassium, Blood 4.1 mmol/L (3.5-5.5); Sodium, Blood 143 mmol/L (136-145)
--- NOTE | 2022-04-26 05:50 | NUR ---
NO ACUTE EVENTS OVERNIGHT. PT HAS BEEN AMINAH STABLE SLIGHTLY HYPERTENSIVE IN 150'S. PT IS A&OX 4 DYER IS DIMINISHED TO ASCULTATION HE IS CURRENTLY ON HFNC@ 35L 55% HAS HAD NO SIGNS OF RESPIRATORY DISTRESS.PT HAS HAD GOOD URIN OUTPUT 550 TOTAL. BLOOD SUGARS HAVE BEEN ELEVATED IN 200'S AND HAS NEED 6 UNITS BOTH CHECKS. PT HAS DIET ORDERED AND NEEDS BS CHECKWS CHANGED TO AC AND HS AND IS CURRIOUS WHEN HELL BE STARTED BACK ON HOME DIABETIC MEDS WILL CONTINUE TO MONITOR AND REPORT TO ONCOMING PRABHU
--- NOTE | 2022-04-26 07:23 | NUR ---
Assumed care at 0700. Report received from nightshift RN. Pt in bed, A&O, on heated high-flow NC, 35LPM, 55%. Pt denies needs att, vs stable. Will continue to monitor.
--- NOTE | 2022-04-26 18:29 | NUR ---
Shift summary. Pt up to chair for 6 hours this shift. On airvo, 35LPM, 50%. Pt A&O, VS stable throughout shift, no acute events. See assessment for further details. Will continue to monitor and report off to nightshift RN.
--- NOTE | 2022-04-27 00:53 | NUR ---
ASSUMED CARE OF PATIENT AT 0000. PATIENT EXAM CONSISTENT WITH PREVIOUS RN CHARTING. PATIENT PLEASANT AND DENIES ANY PAIN/NEEDS AT THIS TIME. REMAINS ON 35L 50%.
[2022-04-27 04:12] LABS: BASOPHILS ABSOLUTE AUTO 0.03 K/mm3 (0.00-0.23); BASOPHILS PERCENT AUTO 0 % (0-2); EOSINOPHILS PERCENT AUTO 0 % (0-6); Hematocrit 38.7 % (37.0-53.0); Hemoglobin 12.1 g/dL (13.5-17.5); IMMATURE GRAN ABSOLUTE AUTO 0.27 K/mm3 (0.00-0.10); IMMATURE GRAN PERCENT AUTO 2 % (0-1); LYMPHOCYTES ABSOLUTE AUTO 0.74 K/mm3 (0.84-5.20); LYMPHOCYTES PERCENT AUTO 7 % (21-46); MONOCYTES ABSOLUTE AUTO 0.42 K/mm3 (0.16-1.47); MONOCYTES PERCENT AUTO 4 % (4-13); Mean Corpuscular HGB 26.4 pg (26.0-34.0); Mean Corpuscular HGB Conc 31.3 g/dL (31.5-36.5); Mean Corpuscular Volume 84 fL (80-100); NEUTROPHILS ABSOLUTE AUTO 9.64 K/mm3 (1.96-9.15); NEUTROPHILS PERCENT AUTO 87 % (41-73); Platelet Count 266 K/mm3 (150-400); RDW Coefficient Variation 15.5 % (11.7-14.2); RDW Standard Deviation 47.2 fL (35.1-46.3); Red Blood Cell Count 4.59 M/mm3 (4.30-5.90)
[2022-04-27 04:28] LABS: Bun/Creatinine Ratio 43.3 (12.0-20.0); Calcium, Blood 8.8 mg/dL (8.5-10.1); Creatinine, Blood 0.92 mg/dL (0.60-1.20); Potassium, Blood 4.3 mmol/L (3.5-5.5)
--- NOTE | 2022-04-27 06:11 | NUR ---
PATIENT REMAINS AOX4. 35L 50% O2. NSR ON MONITOR. DENIES PAIN.
--- NOTE | 2022-04-27 08:43 | NUR ---
Assumed care at 0700, report received from nightshift RN. Pt resting in bed ATT, A&O, no acute needs. Pt on airvo 35lpm, 50%, VS stable. Continue to monitor.
[2022-04-27 14:50] LABS: Albumin, Blood 2.7 g/dL (3.4-5.0); Albumin/Globulin Ratio 0.8 (0.8-1.8); Bilirubin, Direct 0.1 mg/dL (0.0-0.3); Bilirubin, Indirect 0.3 mg/dL (0.1-0.7); Bilirubin, Total 0.4 mg/dL (0.1-1.0); Globulin, Blood 3.5 g/dL (2.2-4.0); Total Protein, Blood 6.2 g/dL (6.4-8.2)
--- NOTE | 2022-04-27 19:07 | NUR ---
Shift summary Pt rested in bed most of shift. Up to chair in afternoon. No changes in airvo settings. Orders obtained from Dr. Beverly for additional bowel care medications d/t no bm for 4+ days. Pt given suppository in afternoon resulting in 1 small bm. Pt currently up in chair at time of report. No acute events today, see assessment for further details. Will report off to oncoming RN.
[2022-04-28 04:03] LABS: BASOPHILS ABSOLUTE AUTO 0.02 K/mm3 (0.00-0.23); BASOPHILS PERCENT AUTO 0 % (0-2); EOSINOPHILS PERCENT AUTO 0 % (0-6); Hematocrit 37.3 % (37.0-53.0); Hemoglobin 11.8 g/dL (13.5-17.5); IMMATURE GRAN ABSOLUTE AUTO 0.25 K/mm3 (0.00-0.10); IMMATURE GRAN PERCENT AUTO 2 % (0-1); LYMPHOCYTES ABSOLUTE AUTO 0.82 K/mm3 (0.84-5.20); LYMPHOCYTES PERCENT AUTO 7 % (21-46); MONOCYTES ABSOLUTE AUTO 0.45 K/mm3 (0.16-1.47); MONOCYTES PERCENT AUTO 4 % (4-13); Mean Corpuscular HGB 26.6 pg (26.0-34.0); Mean Corpuscular HGB Conc 31.6 g/dL (31.5-36.5); Mean Corpuscular Volume 84 fL (80-100); Mean Platelet Volume 10.6 fL (9.1-12.4); NEUTROPHILS ABSOLUTE AUTO 10.22 K/mm3 (1.96-9.15); NEUTROPHILS PERCENT AUTO 87 % (41-73); Platelet Count 263 K/mm3 (150-400); RDW Coefficient Variation 15.2 % (11.7-14.2); RDW Standard Deviation 46.8 fL (35.1-46.3); Red Blood Cell Count 4.43 M/mm3 (4.30-5.90); White Blood Cell Count 11.76 K/mm3 (4.00-11.30)
[2022-04-28 04:19] LABS: Albumin, Blood 2.8 g/dL (3.4-5.0); Anion Gap 5 mmol/L (6-16); Blood Urea Nitrogen 34 mg/dL (8-24); Bun/Creatinine Ratio 37.1 (12.0-20.0); CO2, Blood 35 mmol/L (21-32); Calcium, Blood 8.6 mg/dL (8.5-10.1); Chloride, Blood 99 mmol/L (98-108); Creatinine, Blood 0.92 mg/dL (0.60-1.20); Glomerular Filtration Rate 89 (60-); Glucose, Blood 284 mg/dL (70-99); Magnesium, Blood 2.5 mg/dL (1.6-2.4); Phosphorus, Blood 4.2 mg/dL (2.5-4.9); Potassium, Blood 4.3 mmol/L (3.5-5.5); Sodium, Blood 139 mmol/L (136-145)
--- NOTE | 2022-04-28 06:12 | NUR ---
PATIENT REPORTS RESTING WELL OVERNIGHT. OXYGEN SETTINGS INCREASED TO 30L 55% OVERNIGHT. PATIENT STATES THAT BREATHING FEELS IMPROVED. SR AND BP STABLE.
--- NOTE | 2022-04-28 09:40 | NUR ---
Alert, oriented and pleasantly conversant. Denies any needs. On AirVo, 35 l/min, 55% Fio2 at time of assessment. Sitting up in bed, states that he expects to work with physical therapist today. Encouraged OOB to chair, and he said that he has no problem getting up and in and out of chair; states he was in the chair until 7 or 8 pm last night. Appetite good, but states that he doesn't drink much fluid, even when well. States one small bowel movement last night. Bowel tones active; pt states that he is passing gas. Skaggs draining clear yellow urine. Pt states that when he is in hospital he has trouble voiding, and that skaggs was dc'd last time, only to be put back in due to retention. STates when he is home he has no trouble. Bladder training started at this time, skaggs tubing clamped. Instructed to let staff known if he feels fullness in his bladder/need to void.
--- NOTE | 2022-04-28 13:08 | NUR ---
Pt sitting up in chair, oxygen FiO2 was decreased, apparently by RT to 45%. Pt had been sensing bladder fullness; bladder training ongoing prior to skaggs discontinuation.
--- NOTE | 2022-04-28 14:36 | NUR ---
Pt requested trial on hi-flow n.c. instead of AirVo. Switched to n.c. 10 l/min at this time. SpO2 holding steady at 95% while he is sitting up in the chair at this time.
--- NOTE | 2022-04-28 14:52 | NUR ---
Bladder training ongoing. Pt has felt fullness in his bladder twice, and each time it was unclamped and 350-500 cc emptied. sitting up in chair. STates no BM yet today. Appetite good.
--- NOTE | 2022-04-28 16:42 | NUR ---
Weaned oxygen down to 6 l/min. Spo2 94%
--- NOTE | 2022-04-28 17:53 | NUR ---
Report given to Priti Singh RN. Pt was transferred to PCU 12 in a wheelchair by the PCT.
--- NOTE | 2022-04-28 20:01 | NUR ---
ASSUMPTION OF CARE THIS RN ASSUMED CARE OF PATIENT AT 1900. REPORT TAKEN FROM IZABELA PELLETIER. PATIENT ON 6L VIA [place] NC WITH O2 SATS >92%. DENIES SOB. RR <20. BP STABLE. AFEBRILE. NSR ON TELE WITH HR 80S. DENIES PAIN. VASQUES CATHETER PATENT AND DRAINING CLEAR YELLOW URINE. BLADDER TRAINING IN PROGRESS; VASQUES CURRENTLY CLAMPED. PER PREVIOUS RN, PATIENT HAS BEEN ABLE TO FEEL THE SENSATION TO URINATE. PATIENT EXPRESSES CONCERN TO THIS RN ABOUT REMOVING CATHETER, REPORTING PREVIOUS PROBLEMS WITH RETENTION IN THE HOSPITAL WHEN CATHETER IS REMOVED. PATIENT EDUCATED ON WHY DC-ING CATHETER IS BENEFICIAL. PATIENT ABLE TO REPOSITION SELF IN BED. ALERT AND ORIENTED FULLY. ABLE TO MAKE NEEDS KNOWN AND CALLING STAFF APPROPRIATELY. BED IN LOWEST POSITION AND CALL LIGHT WITHIN REACH. THIS RN WILL REVIEW CHART AND CONTINUE TO MONITOR AND PROVIDE INTERVENTIONS NEEDED/ORDERED.
--- NOTE | 2022-04-29 04:32 | NUR ---
SHIFT SUMMARY NO ACUTE CHANGES OVERNIGHT. PATIENT CONTINUES TO BE ON 6L VIA [place] NC WITH O2 SATS 93-95%. THIS RN NOTES THAT PATIENT DESATS TO <92% WITH EXERTION OR PROLONGED CONVERSATION. NSR ON THE MONITOR WITH OCCASIONAL TRIGEMINY NOTED. PATIENT DENIES CHEST PAIN/PRESSURE. BP STABLE. AFEBRILE. MEDICATING PER EMAR. PATIENT ABLE TO REPOSITION SELF IN BED INDEPENDENTLY. ABLE TO MAKE NEEDS KNOWN AND CALLING APPROPRIATELY. PATIENT IS [place] WHEN HEARING AIDES ARE NOT IN HIS EARS. PATIENT ONLY SLEPT FOR A FEW HOURS LAST NIGHT BUT STATED THAT IT IS HIS BASELINE TO "ONLY SLEEP FOR 3 HOURS EVERY NIGHT". VASQUES CATHETER PATENT AND DRAINING LIGHT YELLOW URINE. BLADDER TRAINING CURRENTLY BEING DONE, WITH CATHETER CLAMPED AT THIS TIME; PATIENT HAS BEEN ABLE TO LET THIS RN KNOW WHEN HE FEELS THE URGE TO VOID. PATIENT GIVEN BOWEL CARE MEDS PER EMAR. PATIENT REFUSED MILK OF MAG; ABD DISTENTION NOTED, HOWEVER, PT STATES THIS IS HIS NORMAL AND HE ONLY HAS A BM EVERY 2-3 DAYS. BED IN LOWEST POSITION AND CALL LIGHT WITHIN REACH. THIS RN WILL CONTINUE TO MONITOR AND PROVIDE INTERVENTIONS NEEDED/ORDERED UNTIL SHIFT CHANGE AT 0700.
[2022-04-29 05:14] LABS: BASOPHILS ABSOLUTE AUTO 0.04 K/mm3 (0.00-0.23); BASOPHILS PERCENT AUTO 0 % (0-2); EOSINOPHILS PERCENT AUTO 0 % (0-6); Hematocrit 38.4 % (37.0-53.0); Hemoglobin 12.1 g/dL (13.5-17.5); IMMATURE GRAN ABSOLUTE AUTO 0.37 K/mm3 (0.00-0.10); IMMATURE GRAN PERCENT AUTO 3 % (0-1); LYMPHOCYTES ABSOLUTE AUTO 0.72 K/mm3 (0.84-5.20); LYMPHOCYTES PERCENT AUTO 5 % (21-46); MONOCYTES ABSOLUTE AUTO 0.53 K/mm3 (0.16-1.47); MONOCYTES PERCENT AUTO 4 % (4-13); Mean Corpuscular HGB 26.7 pg (26.0-34.0); Mean Corpuscular HGB Conc 31.5 g/dL (31.5-36.5); Mean Corpuscular Volume 85 fL (80-100); Mean Platelet Volume 10.3 fL (9.1-12.4); NEUTROPHILS ABSOLUTE AUTO 12.65 K/mm3 (1.96-9.15); NEUTROPHILS PERCENT AUTO 88 % (41-73); Platelet Count 311 K/mm3 (150-400); Red Blood Cell Count 4.54 M/mm3 (4.30-5.90); White Blood Cell Count 14.31 K/mm3 (4.00-11.30)
[2022-04-29 05:36] LABS: Albumin, Blood 2.8 g/dL (3.4-5.0); Anion Gap 5 mmol/L (6-16); Blood Urea Nitrogen 32 mg/dL (8-24); Bun/Creatinine Ratio 34.9 (12.0-20.0); CO2, Blood 35 mmol/L (21-32); Calcium, Blood 8.9 mg/dL (8.5-10.1); Chloride, Blood 96 mmol/L (98-108); Creatinine, Blood 0.92 mg/dL (0.60-1.20); Glomerular Filtration Rate 89 (60-); Glucose, Blood 264 mg/dL (70-99); Phosphorus, Blood 4.2 mg/dL (2.5-4.9); Potassium, Blood 5.2 mmol/L (3.5-5.5); Sodium, Blood 136 mmol/L (136-145)
--- NOTE | 2022-04-29 07:50 | NUR ---
INITIAL ASSESSMENT: Patient is lying in bed watching TV. He is alert and oriented. He denies pain at this time. He denies CP or SOB at this time. HRR. SR in the 80s. LS DIM T/O, biox is 95% on 6l via NC, oxygen slowly titrated down to his home dose of 4l via NC-saturations remain in the low 90s. BT hypoactive, pt states he has had a small bowel movement since he has been here. Bowel care in place. PPP, he has trace edema to ble. Skaggs cath patent and draining clear yellow urine, bladder training being done-plan to DC skaggs this AM. AM meds given at this time. Patient denies other needs. Call light in reach.
[2022-04-29] MEDS ORDERED: SENN187 PO (10:45)
[2022-04-29] MEDS ORDERED: Celexa20 MG PO (10:45)
[2022-04-29] MEDS ORDERED: LINE600 PO (10:46)
[2022-04-29] MEDS ORDERED: BASAGLAR K100 UNIT/1 SC (10:46)
[2022-04-29] MEDS ORDERED: MELATONIN5 M1 PO (10:46)
[2022-04-29] MEDS ORDERED: PRED20 PO (10:48)
--- NOTE | 2022-04-29 11:30 | NUR ---
DISCHARGE: Patient and verbalize understanding of DC instructions. Pt and demonstrate understanding of insulin pen instructions. Patient to home via WC with .
== END 2022-04-29 11:20 | disposition home health service (06) | DRG 208 ==
LOC: ER 17:09 → ICUW 18:59 → PCU 18:59 → ICUW 21:59 → PCU 04-28 17:54
PROVIDERS: Emergency Medicine; Family Medicine; Internal Medicine; Internal Medicine Critical Care Medicine; ADMIT Family Medicine
PROC: XW033E5 Introduction of Remdesivir Anti-infective into Peripheral Vein, Percutaneous Approach, New Technology Group 5 (ICD-10-PCS; 2022-04-22)
PROC: 5A1945Z Respiratory Ventilation, 24-96 Consecutive Hours (ICD-10-PCS; 2022-04-22)
PROC: 0BH17EZ Insertion of Endotracheal Airway into Trachea, Via Natural or Artificial Opening (ICD-10-PCS; 2022-04-22)
PROC: 5A09357 Assistance with Respiratory Ventilation, Less than 24 Consecutive Hours, Continuous Positive Airway Pressure (ICD-10-PCS; 2022-04-22)
PROC: 8E0ZXY6 Isolation (ICD-10-PCS; 2022-04-22)
PROC: XW0DXM6 Introduction of Baricitinib into Mouth and Pharynx, External Approach, New Technology Group 6 (ICD-10-PCS; principal; 2022-04-23)
PROC: 5A0945A Assistance with Respiratory Ventilation, 24-96 Consecutive Hours, High Flow/Velocity Cannula (ICD-10-PCS; 2022-04-26)
DX: U07.1 COVID-19 (principal); G92.8 Other toxic encephalopathy; J96.21 Acute and chronic respiratory failure with hypoxia; J96.22 Acute and chronic respiratory failure with hypercapnia; J12.82 Pneumonia due to coronavirus disease 2019; J15.212 Pneumonia due to Methicillin resistant Staphylococcus aureus; M35.1 Other overlap syndromes; I25.10 Atherosclerotic heart disease of native coronary artery without angina pectoris; K21.9 Gastro-esophageal reflux disease without esophagitis; I10 Essential (primary) hypertension; E11.42 Type 2 diabetes mellitus with diabetic polyneuropathy; J43.9 Emphysema, unspecified; I95.9 Hypotension, unspecified; D64.9 Anemia, unspecified; E66.9 Obesity, unspecified; E78.00 Pure hypercholesterolemia, unspecified; G47.33 Obstructive sleep apnea (adult) (pediatric); I25.2 Old myocardial infarction; Z99.81 Dependence on supplemental oxygen; Z86.73 Personal history of transient ischemic attack (TIA), and cerebral infarction without residual deficits; Z88.5 Allergy status to narcotic agent; Z79.811 Long term (current) use of aromatase inhibitors; Z79.899 Other long term (current) drug therapy; Z79.51 Long term (current) use of inhaled steroids; Z79.01 Long term (current) use of anticoagulants; Z79.84 Long term (current) use of oral hypoglycemic drugs; Z95.5 Presence of coronary angioplasty implant and graft; Z98.890 Other specified postprocedural states; Z87.891 Personal history of nicotine dependence; Z87.442 Personal history of urinary calculi; Z68.38 Body mass index [BMI] 38.0-38.9, adult
CPT/HCPCS: 0241U; 31500; 36415; 36600; 51702; 70450; 71045; 80048; 80053; 80069; 80076; 80202; 81001; 82803; 82947; 83735; 83880; 84145; 84484; 85025; 87070; 87077; 87147; 87186; 87205; 93005; 93010; 94002; 94003; 94640; 94644; 94660; 94664; 94760; 94762; 96365; 96375; 97110; 97116; 97162; 97166; 97530; 99291-25; 99292; A9270; C1751; C9113; C9399; J0248; J0330; J0360; J1650; J1815; J1940; J2060; J2704; J2920; J2930; J3370; J7030; J7050; J7060

== ENCOUNTER 2022-05-25 07:09 | Observation (INO) | payer OTHER ==
[~2022-05-25 07:09] MED LIST changes: +BASAGLAR K100 UNIT/1 SC; +Celexa20 MG PO; +ESCI10 PO; +MELATONIN5 M1 PO; +SENN187 PO
[2022-05-25 07:53] LABS: BASOPHILS ABSOLUTE AUTO 0.04 K/mm3 (0.00-0.23); BASOPHILS PERCENT AUTO 1 % (0-2); EOSINOPHILS PERCENT AUTO 1 % (0-6); Hematocrit 39.4 % (37.0-53.0); Hemoglobin 11.3 g/dL (13.5-17.5); IMMATURE GRAN PERCENT AUTO 1 % (0-1); LYMPHOCYTES ABSOLUTE AUTO 1.23 K/mm3 (0.84-5.20); LYMPHOCYTES PERCENT AUTO 15 % (21-46); MONOCYTES ABSOLUTE AUTO 0.76 K/mm3 (0.16-1.47); MONOCYTES PERCENT AUTO 9 % (4-13); Mean Corpuscular HGB 26.7 pg (26.0-34.0); Mean Corpuscular HGB Conc 28.7 g/dL (31.5-36.5); Mean Corpuscular Volume 93 fL (80-100); Mean Platelet Volume 9.9 fL (9.1-12.4); NEUTROPHILS PERCENT AUTO 73 % (41-73); NRBC ABSOLUTE 0.02 K/mm3 (0.00-0.02); NRBC Auto 0.2 /100 WBC (0.0-0.2); Platelet Count 274 K/mm3 (150-400); RDW Coefficient Variation 16.2 % (11.7-14.2); RDW Standard Deviation 54.6 fL (35.1-46.3); Red Blood Cell Count 4.24 M/mm3 (4.30-5.90); White Blood Cell Count 8.23 K/mm3 (4.00-11.30)
[2022-05-25 08:00] LABS: pH Blood Arterial 7.39 (7.35-7.45)
[2022-05-25 08:01] LABS: PCO2 Arterial 70.2 mmHg (35-45); PO2 Arterial 30.5 mmHg (80-100)
[2022-05-25 08:15] LABS: Albumin, Blood 2.9 g/dL (3.4-5.0); Albumin/Globulin Ratio 0.7 (0.8-1.8); Bilirubin, Direct 0.2 mg/dL (0.0-0.3); Bilirubin, Indirect 0.4 mg/dL (0.1-0.7); Bilirubin, Total 0.6 mg/dL (0.1-1.0); Bun/Creatinine Ratio 14.6 (12.0-20.0); Calcium, Blood 9.2 mg/dL (8.5-10.1); Creatinine, Blood 1.3 mg/dL (0.60-1.20); Globulin, Blood 4.1 g/dL (2.2-4.0); Magnesium, Blood 2.2 mg/dL (1.6-2.4); Potassium, Blood 3.7 mmol/L (3.5-5.5)
[2022-05-25 08:56] LABS: Influenza A, PCR NEGATIVE (NEGATIVE); Influenza B, PCR NEGATIVE (NEGATIVE); Resp Syncytial Virus, PCR NEGATIVE (NEGATIVE); SARS-Cov-2 (COVID-19) PCR, MMC NEGATIVE (NEGATIVE)
[2022-05-25 09:21] LABS: Source, Urine Straight Cath
[2022-05-25 09:24] LABS: Appearance, Urine Clear (Clear); Bilirubin, Urine Neg (Neg); Blood, Urine Neg (Neg); Color, Urine Yellow (P-Yellow); Glucose Qualitative, Urine Neg (Neg); Ketones, Urine Neg (Neg); Leukocyte Esterase, Urine Neg (Neg); Nitrite, Urine Neg (Neg); Protein, Urine 2+ (Neg); Urobilinogen, Urine NORM (Normal)
[2022-05-25 09:40] LABS: Bacteria Many /hpf; Mucus Light (0-Heavy); Red Blood Cells, Urine 0-2 /hpf (0-2); Squamous Epithelial Cells Few /hpf (Few); White Blood Cells, Urine 0-2 /hpf (0-5)
[2022-05-25 09:46] LABS: U Amphetamine Screen Not Detected; U Barbituate Screen Not Detected; U Benzodiazapine Screen Not Detected; U Buprenorphine Screen Not Detected; U Cannabinoids Screen DETECTED; U Cocaine Screen Not Detected; U Methadone Screen Not Detected; U Methamphetamine Screen Not Detected; U Opiates Screen Not Detected; U Oxycodone Screen Not Detected; U Phencyclidine Screen Not Detected; U Propoxyphene Screen Not Detected
[2022-05-25 09:47] LABS: PCO2 Arterial 99.9 mmHg (35-45); PO2 Arterial 245 mmHg (80-100); pH Blood Arterial 7.23 (7.35-7.45)
[2022-05-25 09:59] LABS: Base Excess Venous 13.2 mmol/L; Bicarbonate Venous 34.4 mmol/L (24.0-30.0); PCO2 Venous 86.9 mmHg (38-42); PO2 Venous 114 mmHg (38-42); pH Blood Venous 7.27 (7.34-7.37)
== END 2022-05-25 16:44 ==
LOC: ER 07:09 → ERHOLD 07:10 → ER 07:58 → ERHOLD 16:44
PROVIDERS: Student in an Organized Health Care Education/Training Program; ADMIT Family Medicine
DX: J96.01 Acute respiratory failure with hypoxia (principal); J96.02 Acute respiratory failure with hypercapnia; J44.1 Chronic obstructive pulmonary disease with (acute) exacerbation; Z66 Do not resuscitate; Z51.5 Encounter for palliative care; Z20.822 Contact with and (suspected) exposure to COVID-19; Z87.891 Personal history of nicotine dependence; Z88.5 Allergy status to narcotic agent
CPT/HCPCS: 0241U; 36415; 36600; 51702; 70450; 71045; 80048; 80076; 81001; 82803; 83605; 83690; 83735; 83880; 84145; 84484; 85025; 87040; 87086; 93005; 93010; 94660; 96365-59; 96367-59; 96375-59; 99291-25; A9270; G0378; J2270; J2543; J3370; J7050; J7060; J7120